=== PATIENT | female | born 1995 | race Caucasian/White ===

== ENCOUNTER 2018-12-11 12:36 | Emergency (ER) | payer BC, SELFPAY ==
[2018-12-11 12:37] VITALS: BP 124/80; PULSE 108; RESP 18; TEMP 36.6; O2SAT 100; BMI 29.2
--- NOTE | 2018-12-11 13:50 | CT_ITS ---
STUDY: CT ABDOMEN AND PELVIS WITH CONTRAST REASON FOR EXAM: Female, 23 years old. Right side abdominal pain RADIATION DOSAGE (If Supplied By Facility): CTDIvol = ( 8.88 ) mGy, DLP = ( 580.06 ) mGycm TECHNIQUE: Transaxial images were obtained from the dome of the diaphragm to the symphysis pubis without oral contrast. 100 IV/Oral Isovue 300 was administered. Sagittal and coronal images were reconstructed. Individualized dose optimization techniques were used for this CT. COMPARISON: None. FINDINGS: The visualized lung bases are unremarkable. The visualized portions of the heart are within normal limits. Normal liver. Normal gallbladder and extrahepatic biliary system. Normal spleen. Normal pancreas. Normal bilateral adrenal glands. Normal right kidney. Normal left kidney. Normal visualized stomach. There are distended loops of small bowel within the right lower quadrant without significant wall thickening. There is abundant stool in the colon especially the cecum extending to the sigmoid. Appendix is normal and well seen on coronal image 51. Normal abdominal aorta. Normal inferior vena cava. Normal retroperitoneum. Bladder is distended measuring 10 x 9 x 9 cm. Normal visualized uterus. The adnexa appears normal bilaterally. Normal abdominal wall. Normal osseous structures. CT/Abdomen/Pelvis WITH Contrast IMPRESSION: Constipation. Distended small bowel loops right lower quadrant. Consider focal ileus. No evidence of appendicitis. No evidence of hydronephrosis. Electronically Signed: Mary Gonzalez MD at 16:09 EDT Tel , Service support ,
[2018-12-11] MEDS: Morphine 4 MG/ML Syringe IV (14:01)
[2018-12-11] MEDS: 0.9% Normal Saline 1,000 ML 150 ML IV (14:01)
[2018-12-11] MEDS: Ondansetron 4 MG/2 ML Vial IV (14:01)
[2018-12-11 14:05] LABS: Absolute Lymphocyte Count 1.66 X10^3/ul (0.83-4.51); Absolute Neutrophil Count 3.7 X10^3/uL (2.0-7.7); Basophil# 0.03 X10^3/uL; Basophil% 0.5 % (0-1); Eosinophil# 0.08 X10^3/uL; Eosinophils% 1.3 % (0-5); Hematocrit 40.9 % (37-47); Hemoglobin 13.9 g/dl (12.0-15.0); Lymphocyte # 1.66 X10^3/ul (4.0); Lymphocyte % 26.7 % (19-41); Mean Corpuscular Hgb 29.4 pg (27.0-32.0); Mean Corpuscular Volume 86.5 fL (81-99); Mean Platelet Vol. 9.4 fl (6.2-12.0); Monocyte# 0.75 X10^3/uL; Monocyte% 12.1 % (0-10); Neutrophil # 3.67 X10^3/uL (2.7-7.7); Neutrophil % 59.1 % (47-70); POSITIVE COUNT NO; POSITIVE DIFFERENTIAL YES; POSITIVE MORPHOLOGY NO; Platelet Count 346 K/mm3 (150-450); RBC Distribution Width CV 12.7 % (11.6-14.6); RBC Distribution Width SD 40.6 fl (35.1-43.9); Red Blood Count 4.73 M/mm3 (4.2-5.4); White Blood Count 6.2 K/mm3 (4.4-11.0)
[2018-12-11 14:06] LABS: Differential Indicated SCAN CRITERIA MET
[2018-12-11 14:14] LABS: Internal QC Validated? YES +Cl - CLEAR BKGD; Pregnancy, Serum, hCG Quali. NEGATIVE Negative
[2018-12-11 14:25] LABS: Anion Gap 10 (5-15); BUN 6 mg/dL (7-18); BUN/Creat Ratio 9.6 RATIO (10-20); Calcium,Total 8.9 mg/dL (8.5-10.1); Chloride 107 mmol/L (98-107); Creatinine, Serum 0.63 mg/dL (0.55-1.02); EST Glomerular Filtration Rate 127 mL/min (>60); Est Glom Filt Rate - Afr Amer 154 mL/min (>60); Estimated Creatinine Clearance 111.72 ml/min; Glucose 74 mg/dL (74-106); Potassium 4.5 mmol/L (3.5-5.1); Sodium Level 141 mmol/L (136-145)
--- NOTE | 2018-12-11 15:33 | ED.VISSUMM ---
- ER Visit Summary Date of Service: 12/11/18 Chief Complaint: Right-sided abdominal pain History of Present Illness: The patient is a 23 F with periumbilical and right lower quadrant pain for the past 4 days. She describes it as intermittent and sharp. Pain is worse after she eats. She is had some mild diarrhea. She has not noted fever or urinary symptoms. Last menstrual cycle was approximately 2 weeks ago. She denies known history of ovarian cysts. Physical Examination: Vital signs unremarkable. Patient's lying in bed no acute distress. She is nontoxic-appearing. Heart is regular rate and rhythm. Lung sounds are clear. Abdomen is soft with mild to moderate tenderness in the periumbilical region. No guarding or rebound. Hypoactive bowel sounds are present. Test Results: CBC and chemistry studies unremarkable. test negative. Urinalysis returns positive for infection with greater than 100 white cells and 2+ bacteria. Emergency Department Course and Treatment: Patient was given morphine, Zofran, and IV fluids. Patient will be treated with a course of Bactrim for her UTI. She will be given prescription for MiraLAX to help with constipation. Treatment Plan: [] Disposition: Discharge Impression: 1. Cystitis 2. Constipation This note was generated with [employer] dictation software. It may contain incorrect words, spelling, and punctuation that were not noted in review of the chart prior to signing ED Disposition - Plan for ED Patient: Disposition: Home or Assisted Living Instructions: ED UTI Cystitis Female, ED Constipation Prescriptions: Polyethylene Glycol 3350 [Miralax] 17 gm PO DAILY #30 packet Smz/Tmp Ds [Bactrim Ds] 1 tablet PO BID #6 tablet Referrals: Napoleon Clark DO [Primary Care Provider] - 1-2 Weeks
[2018-12-11 16:17] LABS: Mucous, Urine 0 SEEN /hpf (<or=2+)
[2018-12-11 16:21] LABS: Color, Urine Yellow (Yellow); Glucose, Dipstick Normal (Normal); Ketone-Dipstick 5 mg/dl (Negative); Leukocyte Esterase-Dipstick 500 /ul (Negative); Nitrite-Dipstick Negative (Negative); Occult Blood-Urine 25 /ul (Negative); Protein-Dipstick 30 mg/dl (Negative); Specific Gravity, Urine 1.005 (1.002-1.030); Urine Bilirubin Dipstick Negative (Negative); Urine Clarity Cloudy (Clear); Urine Urobilinogen Normal (Normal)
[2018-12-11 16:29] LABS: Bacteria 2+ /hpf (None Seen); Red Blood Cells-Urine 5-10 SEEN /hpf (0-5); Squamous Epithelial Cells - UA 25-50 SEEN /hpf (5-10); White Blood Cells >100 SEEN /hpf (0-5)
[2018-12-11 16:30] LABS: Amorphous Sediment 1+ URATE
[2018-12-11 16:53] VITALS: BP 132/80; PULSE 87; RESP 16
[2018-12-11] MEDS: Smz/Tmp Ds Tablet 1 TABLET PO (16:54)
== END 2018-12-11 16:56 | disposition home or self-care (01) ==
PROVIDERS: Emergency Provider Emergency Medicine; Family Provider Preventive Medicine Occupational Medicine; PCP Preventive Medicine Occupational Medicine
DX: N30.90 Cystitis, unspecified without hematuria (principal); K59.00 Constipation, unspecified; R19.7 Diarrhea, unspecified; J45.909 Unspecified asthma, uncomplicated; F90.9 Attention-deficit hyperactivity disorder, unspecified type; Z79.899 Other long term (current) drug therapy
CPT/HCPCS: 74177; 80048; 81001; 84703; 85025; 96361; 96374; 96375; 99284; Q9967; A4216; J2405

== ENCOUNTER 2020-01-24 20:10 | Outpatient (CLI) | payer BC, SELFPAY ==
[2020-01-24 20:31] VITALS: BMI 37.0
[2020-01-24 20:37] VITALS: BP 128/79; PULSE 101
[2020-01-24 20:38] VITALS: TEMP 37.2; O2SAT 98
[2020-01-24 21:16] LABS: Bacteria 0 SEEN /hpf (None Seen); Mucous, Urine 0 SEEN /hpf (<or=2+); Red Blood Cells-Urine 0 SEEN /hpf (0-5)
[2020-01-24 21:22] LABS: Color, Urine Yellow (Yellow); Glucose, Dipstick Normal (Normal); Ketone-Dipstick 5 mg/dl (Negative); Leukocyte Esterase-Dipstick 500 /ul (Negative); Nitrite-Dipstick Negative (Negative); Occult Blood-Urine Negative /ul (Negative); Protein-Dipstick 30 mg/dl (Negative); Specific Gravity, Urine 1.015 (1.002-1.030); Urine Bilirubin Dipstick Negative (Negative); Urine Clarity Sl. Cloudy (Clear); Urine Urobilinogen 1 mg/dl (Normal)
[2020-01-24 21:40] LABS: ROM Internal Control Test YES-OK TO RESULT pt. (Internal QC)
[2020-01-24 21:42] LABS: Amorphous Sediment 1+ URATE; Squamous Epithelial Cells - UA 0-5 SEEN /hpf (5-10); White Blood Cells 25-50 SEEN /hpf (0-5)
[2020-01-24 21:43] LABS: ROM Patient Test Negative (Negative)
--- NOTE | 2020-01-24 21:57 | OB.TRI.NOTE ---
- Problem List (1) Uterine cramping Status: Acute (2) Amniotic fluid leaking Status: Acute (3) 31 weeks gestation of Status: Acute (4) Dysuria during Status: Acute History of Present Illness Date of Service: 01/24/20 Was patient seen by the physician?: Yes Reason For Visit: R/O LABOR Date of Service: 01/24/20 Gestational age: 31.3 History of Present Illness: Patient is a at 31.3 weeks gestation that presents to triage with lower pelvic pressure and back pain that started this evening at 1700. Patient had intercourse around 1600. Some leaking of fluid with no gush. Denies vaginal bleeding. Positive movement. Positive for frequency, urgency and dysuria. Allergies No Known Allergies Allergy (Verified 12/11/18 12:40) Laboratory Studies: Laboratory Tests 01/24/20 01/24/20 Range/Units 21:06 20:57 Urine Color Yellow (Yellow) Urine Clarity Sl. Cloudy (Clear) Urine pH 7.0 (5.0 - 8.0) Ur Specific [place] 1.015 (1.002-1.030) Urine Protein 30 H (Negative) mg/dl Urine Glucose (UA) Normal (Normal) mg/dl Urine Ketones 5 H (Negative) mg/dl Urine Occult Blood Negative (Negative) /ul Urine Nitrite Negative (Negative) Urine Bilirubin Negative (Negative) mg/dL Urine Urobilinogen 1 H (Normal) mg/dl Ur Leukocyte Esterase 500 H (Negative) /ul Urine RBC 0 SEEN (0-5) /hpf Urine WBC 25-50 SEEN (0-5) /hpf Ur Squamous Epith Cells 0-5 SEEN (5-10) /hpf Amorphous Sediment 1+ URATE Urine Bacteria 0 SEEN (None Seen) /hpf Urine Mucus 0 SEEN (<or=2+) /hpf Vag Amniotic Fld Detect Negative (Negative) Review of Systems Constitutional: Denies: Anorexia, Fever Eyes: Denies: Blurred vision Cardiovascular: Denies: Chest Pain, Edema, Heaviness, Light Headedness Respiratory: Denies: Cough, Shortness of Breath Genitourinary: Reports: Dysuria, Frequency, Urgency Musculoskeletal: Reports: Back Pain Neurological: Denies: Headaches Physical Exam Vitals: Vital Signs Temp Pulse BP Pulse Ox 98.9 F 101 H 128/79 H 98 01/24/20 20:38 01/24/20 20:37 01/24/20 20:37 01/24/20 20:38 General: Alert, Oriented x3 Cardiovascular: Regular rate Lungs: Normal air movement Abdomen: Soft, Non Tender, Gravid Neurological: Cranial nerves II-XII grossly intact Estimated gestational size: Appropriate for gestational size Presentation: Cephalic Cervix Dilation (cm): 0 - RN exam Station: -3 Effacement (%): 40 NST - FHR Rate Baby A Baseline: 140 Variability:: Moderate Accelerations:: 15 x 15 Decelerations:: None NST Reactive:: Yes FHR Category:: Category I Uterine Activity:: TOCO- reading irregular but every 2-5 minutes. Contractions palpate mild and relaxed in between Impression/Plan at 31.3 weeks gestation here for pelvic pressure, leaking fluid, dysuria s/p intercourse. ROM plus obtained and sent- negative for amniotic fluid CE- closed/thick/high UA collected and sent- shows signs of dehydration and UTI- Sent for Culture Start Macrobid 100mg PO BID x 7 days- RX sent to pharmacy Patient educated on importance of hydration with water (no tea, juices, sodas) Pelvic rest due to contractions after intercourse Keep scheduled appointment for follow up in office Discharge home- Patient agrees with plan of care
[2020-02-24 12:08] VITALS: BP 131/77; PULSE 121
[2020-02-24 12:10] VITALS: TEMP 36.8
== END 2020-01-24 22:15 | disposition home or self-care (01) ==
LOC: WPOUT 20:17 → OBT 20:17
PROVIDERS: PCP Preventive Medicine Occupational Medicine; Visit Provider Advanced Practice Midwife
DX: O26.893 Other specified pregnancy related conditions, third trimester (principal); M54.9 Dorsalgia, unspecified; R39.15 Urgency of urination; R30.0 Dysuria; R35.0 Frequency of micturition; Z3A.31 31 weeks gestation of pregnancy
CPT/HCPCS: 59025; 59050; 81001; 84112; 87086; 99218; G0378

== ENCOUNTER 2020-02-24 12:00 | Outpatient (CLI) | payer BC, SELFPAY ==
[2020-02-24 12:19] VITALS: BMI 38.2
[2020-02-24 12:23] VITALS: BMI 38.2
[2020-02-24 12:54] LABS: ROM Internal Control Test YES-OK TO RESULT pt. (Internal QC); ROM Patient Test Negative (Negative)
[2020-02-24 13:01] LABS: Color, Urine Yellow (Yellow); Glucose, Dipstick 100 mg/dl (Normal); Ketone-Dipstick 15 mg/dl (Negative); Leukocyte Esterase-Dipstick 100 /ul (Negative); Nitrite-Dipstick Negative (Negative); Occult Blood-Urine 10 /ul (Negative); Protein-Dipstick 30 mg/dl (Negative); Specific Gravity, Urine 1.025 (1.002-1.030); Urine Bilirubin Dipstick Negative (Negative); Urine Clarity Sl. Cloudy (Clear); Urine Urobilinogen 1 mg/dl (Normal)
[2020-02-24 14:16] VITALS: BP 121/80; PULSE 115
--- NOTE | 2020-02-26 08:31 | OB.TRI.NOTE ---
History of Present Illness Date of Service: 02/24/20 Was patient seen by the physician?: No Reason For Visit: RULE OUT SROM Date of Service: 02/24/20 Allergies No Known Allergies Allergy (Verified 12/11/18 12:40) Laboratory Studies: Laboratory Tests 02/24/20 02/24/20 Range/Units 12:55 12:25 Urine Color Yellow (Yellow) Urine Clarity Sl. Cloudy (Clear) Urine pH 5.0 (5.0 - 8.0) Ur Specific [place] 1.025 (1.002-1.030) Urine Protein 30 H (Negative) mg/dl Urine Glucose (UA) 100 H (Normal) mg/dl Urine Ketones 15 H (Negative) mg/dl Urine Occult Blood 10 H (Negative) /ul Urine Nitrite Negative (Negative) Urine Bilirubin Negative (Negative) mg/dL Urine Urobilinogen 1 H (Normal) mg/dl Ur Leukocyte Esterase 100 H (Negative) /ul Vag Amniotic Fld Detect Negative (Negative) Physical Exam Vitals: Vital Signs Pulse BP 115 H 121/80 H 02/24/20 14:16 02/24/20 14:16 NST - FHR Rate Baby A Baseline: 135 Variability:: Moderate Accelerations:: 15 x 15 Decelerations:: None NST Reactive:: Yes FHR Category:: Category I Uterine Activity:: irregular Impression/Plan @ 35.6 weeks, Membranes intact- not in labor ROM+ was negative- dc home
== END 2020-02-24 14:40 | disposition home or self-care (01) ==
LOC: WPOUT 12:13 → OBT 12:14
PROVIDERS: PCP Preventive Medicine Occupational Medicine; Visit Provider Obstetrics & Gynecology
DX: Z34.93 Encounter for supervision of normal pregnancy, unspecified, third trimester (principal); Z3A.35 35 weeks gestation of pregnancy
CPT/HCPCS: 59025; 59050; 81002; 84112; 87086; 87088; 99218; G0378

== ENCOUNTER → 2020-03-25 | Outpatient (CLI) | payer BC, MEDICAID, SELFPAY ==
[2020-02-24 12:23] VITALS: BMI 38.2
== END | disposition home or self-care (01) ==
LOC: MTDU 03-27 11:44
PROVIDERS: PCP Preventive Medicine Occupational Medicine; Referring Provider Advanced Practice Midwife; Visit Provider Advanced Practice Midwife
DX: Z11.59 Encounter for screening for other viral diseases (principal)
CPT/HCPCS: 87635; C9803; U0003

== ENCOUNTER 2020-03-28 23:00 | Inpatient (IN) | payer BC, MEDICAID, SELFPAY ==
[2020-03-28 19:47] VITALS: BP 137/82
[2020-03-28 19:48] VITALS: PULSE 101; TEMP 36.7; O2SAT 97
[2020-03-28 20:01] VITALS: BMI 40.1
[2020-03-28 20:35] LABS: ROM Internal Control Test YES-OK TO RESULT pt. (Internal QC); ROM Patient Test Negative (Negative)
[2020-03-28 21:10] VITALS: BP 137/82; PULSE 102; RESP 18; TEMP 36.7; O2SAT 97
[2020-03-28 23:15] VITALS: BP 132/84; PULSE 102
[2020-03-28 23:16] VITALS: PULSE 103; TEMP 36.7; O2SAT 96
[2020-03-28 23:55] VITALS: BP 124/74; PULSE 100; TEMP 36.7; O2SAT 92
[2020-03-28 23:59] LABS: Absolute Lymphocyte Count 2.24 X10^3/uL (0.83-4.51); Absolute Neutrophil Count 11.3 X10^3/uL (2.0-7.7); Basophil# 0.08 X10^3/uL; Basophil% 0.5 % (0-1); Eosinophil# 0.05 X10^3/uL; Eosinophils% 0.3 % (0-5); Hematocrit 35.4 % (37-47); Lymphocyte # 2.24 X10^3/ul (4.0); Mean Corp Hgb Conc 33.9 g/dL (32-36); Mean Corpuscular Hgb 29.8 pg (27.0-32.0); Mean Corpuscular Volume 87.8 fL (81-99); Mean Platelet Vol. 10.6 fl (6.2-12.0); Monocyte# 1.05 X10^3/uL; NRBC Flagged by Analyzer 0 % (0-5); Neutrophil # 11.29 X10^3/uL (2.7-7.7); Neutrophil % 75.4 % (47-70); Platelet Count 242 K/mm3 (150-450); RBC Distribution Width SD 41.7 fl (35.1-43.9); Red Blood Count 4.03 M/mm3 (4.2-5.4)
[2020-03-29] VITALS (62 sets, daily range): BP systolic 100–139; BP diastolic 50–93; PULSE 77–146; RESP 12–18; TEMP 36.4–37.8; O2SAT 93–100
[2020-03-29] MEDS: 0.9% Saline Lock 10 ML Syringe IV ×2 (01:00→17:57)
[2020-03-29] MEDS: fentaNYL 100 MCG/2 ML Ampul IV (01:00)
[2020-03-29] MEDS: Lactated Ringers 1,000 ML 50 ML IV (01:00)
[2020-03-29] MEDS: Lactated Ringers 500 ML 999 ML IV ×2 (01:41→02:47)
[2020-03-29] MEDS: fentaNYL-bupivacaine (epidural) 100 ML BAG EPIDURAL ×2 (02:40→11:24)
[2020-03-29] MEDS: Ondansetron 4 MG/2 ML Vial IV (02:52)
--- NOTE | 2020-03-29 04:26 | HP.PCM_ITS ---
- Problem List (1) Primiparous Status: Acute (2) 40 weeks gestation of Status: Acute (3) Excessive growth Status: Acute History Date of Admission: 03/29/20 Final HELGA: 03/24/20 Gestational age: 40 Weeks and 5 Days History of this : This is a 24 year-old, G 1, P 0, at 40 weeks gestational age who presents with SROM and ctx's. No VB. Good FM. Medical History: Medical History (Last Updated 03/29/20 @ 04:[address] Kathy Perea, DO) Anxiety F41.9 Asthma J45.909 Migraines G43.909 PCOS (polycystic ovarian syndrome) E28.2 Allergies No Known Allergies Allergy (Verified 03/28/20 20:02) Home Medications: Home Medications Buspirone HCl 10 mg DAILY 12/11/18 Loratadine [Claritin] 10 mg PO DAILY 01/24/20 Montelukast [Singulair] 10 mg PO DAILY 01/24/20 Vits [Prenatabs FA] 1 tab PO DAILY 01/24/20 Smoking Status: Former smoker Number of Fetus(es): 1 NST - FHR Rate Baby A FHR Category:: Category I Uterine Activity:: Ctx's spacing apart History Past Pregnancies: Past Pregnancies Delivery Date Name GA/ Weeks Outcome Route Wt Infant Sex Labor Length Anesthesia Delivery Location Provider FOB Labs: See [facility] record Expected Infant Delivery Method: Spontaneous Vaginal Review of Systems Gynecological: Reports: - - +Ctx and LOF Physical Exam Vitals: Vital Signs Temp Pulse Resp BP Pulse Ox 97.7 F L 95 18 109/71 97 03/29/20 03:30 03/29/20 04:24 03/28/20 21:10 03/29/20 04:24 03/29/20 03:44 General: Alert, No apparent distress Abdomen: Soft, Gravid Extremities:: No edema Neurological: Neuro grossly intact [employer] COMPLAINT CLERK: Normal external genitalia Estimated gestational size: Large for gestational age Presentation: Cephalic Cervix Dilation (cm): 4 Station: -3 Effacement (%): 50 Assessment/Plan All Active Problems Uterine cramping (Acute) Amniotic fluid leaking (Acute) 31 weeks gestation of (Acute) Dysuria during (Acute) Primiparous (Acute) 40 weeks gestation of (Acute) Excessive growth (Acute) This is a 24 year-old, G 1, P 0, at 40 weeks gestational age who presents with SROM and ctx's. - Admit for routine intrapartum care - GBS negative - Epidural for pain control - EFW anticipated to be < 5000 g and pelvis adequate. Patient declined primary section and desires vaginal delivery. Diabetes screening WNL
[2020-03-29] MEDS: Oxytocin 30 units/NS 500 ml 30 UNITS/500 ML IV.SOLN IV (04:30)
--- NOTE | 2020-03-29 04:45 | PCM.PN.BLA ---
Progress Note Called to assess presentation. Vertex presentation noted on digital exam. Cvx 4/50/-3 and fetus not engaged in pelvis. Patient's ctx's have now spaced apart. Given this, as well as EFW of ~10 lbs, strongly recommended a primary section. Discussed risk of shoulder dystocia leading to brain injury, nerve injury, or with baby. She declines a section and understands she is proceeding against my medical advice. She says she has discussed a section with other family members, and she also does not want to recover from a surgery. All of her questions were answered about a section. Will recheck after starting pitocin and reassess. STROKE Vital Signs/Narrative: Vital Signs Temp Pulse BP Pulse Ox 03/29/20 04:24 97.7 F L 95 109/71 03/29/20 04:00 95 111/68 03/29/20 03:44 82 97 03/29/20 03:39 89 97 03/29/20 03:34 92 98 03/29/20 03:30 97.7 F L 78 110/66 03/29/20 03:29 85 98 03/29/20 03:24 89 97 03/29/20 03:19 88 97 03/29/20 03:14 103 H 97 03/29/20 03:09 92 96 03/29/20 03:04 97 96 03/29/20 03:00 98.7 F 100 107/57 L 03/29/20 02:59 96 03/29/20 02:54 114 H 114/58 L 96 03/29/20 02:50 123 H 117/58 L 03/29/20 02:49 98 03/29/20 02:46 110 H 100/52 L 03/29/20 02:45 111 H 107/57 L 03/29/20 02:44 104 H 96 03/29/20 02:40 101 H 107/50 L 93 03/29/20 02:35 93 120/73 03/29/20 02:34 90 97 03/29/20 02:31 100 131/79 H 03/29/20 02:29 99 98 03/29/20 02:24 100 126/70 H 97 03/29/20 02:20 96 121/66 H 03/29/20 02:19 97 03/29/20 02:15 111 H 139/93 H 03/29/20 02:14 99 03/29/20 02:10 102 H 135/85 H 03/29/20 02:09 99.2 F H 100 03/29/20 00:49 98.5 F 92 118/68 97
[2020-03-29] MEDS: Lactated Ringers 1,000 ML 200 ML IV ×2 (06:48→11:21)
--- NOTE | 2020-03-29 10:20 | PCM.PN.BLA ---
Progress Note Delayed entry. Cervix was reexamined after 4 hours. Cervix was found to be 4.5/60/-3. Pelvis felt to be narrow. IUPC and FSE placed. Continue to titrate Pitocin. Again discussed strongly recommend a primary section given suspected CPD and macrosomia. Patient declines a section and understands this is against my medical advice. STROKE Vital Signs/Narrative: Vital Signs Temp Pulse BP Pulse Ox 03/29/20 10:06 100.0 F H 106 H 133/71 H 96 03/29/20 08:56 99.4 F H 86 117/71 96 03/29/20 08:02 83 118/58 L 03/29/20 08:00 98.1 F 03/29/20 06:55 99.1 F 77 114/70
--- NOTE | 2020-03-29 12:06 | PCM.PN.BLA ---
Progress Note At bedside to assess pt per her request. Cvx unchanged. She is having back pain and occasionally coupling ctx's. Possible OP position but unable to assess given station. Patient has now been ruptured for about 14 hours. Pit gtt running for augmentation as her ctx's had spaced apart. Baby is still not engaged in the pelvis. Patient desires section given suspected macrosomia and CPD. Reviewed r/b/a to a section and patient gave consent. Will proceed with C/S. STROKE Vital Signs/Narrative: Vital Signs Temp Pulse BP Pulse Ox 03/29/20 11:29 98.6 F 03/29/20 11:05 94 97 03/29/20 11:04 99 117/66 03/29/20 10:06 100.0 F H 106 H 133/71 H 96 03/29/20 08:56 99.4 F H 86 117/71 96
[2020-03-29] MEDS: Sodium Citrate/Citric Acid 30 ML UDC PO (12:50)
[2020-03-29] MEDS: Cefazolin 2 GM in 0.9% Normal Saline 100 ML IV (12:53)
[2020-03-29] MEDS: Methylergonovine 0.2 MG/ML Ampul IM (14:14)
[2020-03-29] MEDS: Oxytocin 30 units/NS 500 ml 30 UNITS/500 ML IV.SOLN 167 UNITS IV (14:35)
[2020-03-29] MEDS: Lactated Ringers 1,000 ML 100 ML IV (14:45)
--- NOTE | 2020-03-29 15:00 | OP.PCM_ITS ---
Problem List (1) Primiparous Status: Acute (2) 40 weeks gestation of Status: Acute (3) Excessive growth Status: Acute (4) CPD (cephalo-pelvic disproportion) Status: Acute Report of Operation Date of Procedure: 03/29/20 Pre-Operative Diagnosis: 40 week gestation, primiparous patient, CPD, suspected macrosomia Post-Operative Diagnosis: 40 week gestation, primiparous patient, CPD Surgery/Procedure Performed:: PLTCS via pfannenstiel incision Description of Surgical Findings:: in cephalic presentation. Normal-appearing uterus, bilateral tubes, bilateral ovaries. Normal-appearing and intact placenta with three-vessel cord. Type of Anesthesia:: Epidural Special Medications: None Specimen's removed: Placenta Drains: Carroll Estimated Blood Loss (mL): 1000 Fluids Replaced: 1200 Description of Procedure: Patient was taken back to the operating room where epidural anesthesia was found to be adequate. She was prepped and draped in dorsal position with a leftward tilt. A Pfannenstiel skin incision was made with a scalpel and this was carried down to the underlying layer fascia. The fascia was incised in the midline. The fascia was extended laterally using Brown scissors. The fascia was dissected off the rectus muscles with a combination of sharp and blunt dissection. The rectus muscles were entered in the midline. The peritoneum was entered sharply with good visualization of the bladder. Incision was extended bluntly. A low transverse incision was made on the uterus with a scalpel. A viable female was delivered through the hysterotomy without any force or delay. delivered atraumatically and cord was clamped and cut after 60 sec delay. Infant was handed off to the nursery staff. Uterus was exteriorized. Placenta was removed with manual extraction. Uterus was cleared of all clot and debris. The uterus was closed with Vicryl in a running locked fashion. Several additional [id number] sutures were placed for hemostasis. Uterus was then placed back in the abdomen. Cody was placed over the hysterotomy. Hemostasis was noted. The peritoneum was closed with Vicryl in a running fashion. The rectus muscles were made hemostatic with Bovie cautery and a single aogpvo-oe-capyc suture. The fascia was closed with Vicryl in a running fashion. Subcutaneous space was irrigated and made hemostatic with Bovie cautery. Subcutaneous space was reapproximated with Vicryl. The skin was closed with Monocryl in subcuticular fashion. Steri-Strips and a dressing were placed. Instrument, sponge, needle counts were correct. Patient was taken recovery in stable condition. Grafts/Implants Used: None - Complications None - Admit VTE Documentation VTE Present on Admission: No VTE Mechan Device Prophylaxis: SCD's Delivery Classification: DIANA Indications for : Malpresentation - OP position, Suspected cephalopelvic disproportion - Narrow pelvis, - - Suspected macrosomia, baby was expected to be over 10 lbs Drain: Carroll to straight drain Cord Entanglement: None Antibiotic Given: Ancef 2 grams IV x1, Zithromax 500 mg/5 mL X1 Pt instructed on risks of surgery: Bleeding, Infection, Need for Future C- Sections, Injury to surrounding structure(s) including bowel and bladder Complications: None - Admit VTE Documentation VTE Present on Admission: No VTE Mechan Device Prophylaxis: SCD's VTE Pharm Prophylaxis ordered?: Yes
[2020-03-29] MEDS: miSOPROStol 200 MCG Tablet 800 MCG RECTAL (15:12)
--- NOTE | 2020-03-29 16:20 | NURSING ---
epidural catheter removed at this time without difficulty. Blue tip intact and shown to patient. Bandaid placed over epidural catheter insertion site.
[2020-03-29] MEDS: proCHLORPERazine 10 MG/2 ML Vial IV (16:27)
[2020-03-29] MEDS: Acetaminophen 500 MG Tablet 1000 MG PO (17:54)
[2020-03-29] MEDS: Ketorolac 30 MG/ML Syringe IV (17:54)
[2020-03-29] MEDS: DiphenhydrAMINE 25 MG Capsule PO (23:34)
[2020-03-30] VITALS (12 sets, daily range): BP systolic 94–125; BP diastolic 55–67; PULSE 89–119; RESP 16–18; TEMP 36.7–37.3; O2SAT 95–100
[2020-03-30] MEDS: Acetaminophen 500 MG Tablet 1000 MG PO ×4 (00:06→18:51)
[2020-03-30] MEDS: Ketorolac 30 MG/ML Syringe IV ×3 (00:07→12:03)
[2020-03-30] MEDS: Lactated Ringers 1,000 ML 100 ML IV (00:10)
[2020-03-30] MEDS: Enoxaparin 40 MG/0.4 ML Syringe SC ×2 (02:49→22:42)
[2020-03-30] MEDS: 0.9% Saline Lock 10 ML Syringe IV ×3 (06:11→17:44)
[2020-03-30 08:55] LABS: Hematocrit 22.2 % (37-47); Hemoglobin 7.3 g/dL (12.0-15.0); Mean Corp Hgb Conc 32.9 g/dL (32-36); Mean Corpuscular Hgb 29.7 pg (27.0-32.0); Mean Corpuscular Volume 90.2 fL (81-99); Mean Platelet Vol. 11.3 fl (6.2-12.0); Platelet Count 190 K/mm3 (150-450); RBC Distribution Width CV 13.4 % (11.6-14.6); RBC Distribution Width SD 44.1 fl (35.1-43.9); Red Blood Count 2.46 M/mm3 (4.2-5.4); White Blood Count 13.8 K/mm3 (4.4-11.0)
[2020-03-30] MEDS: Senna/Docusate Sodium 1 Tablet PO (10:17)
--- NOTE | 2020-03-30 10:46 | PN.OBGYN_ITS ---
Patient Problems: Active and Suspected Problems (Last Updated 03/29/20 @ 04:[address] Kathy Perea, DO) Primiparous (Acute) 40 weeks gestation of (Acute) Excessive growth (Acute) CPD (cephalo-pelvic disproportion) (Acute) Subjective: She is doing well this morning. Ambulating and voiding without difficulty. Tolerating regular diet without nausea or vomiting. She denies lightheadedness, dizziness, chest pain, shortness of breath, leg pain. Lochia normal. She is breast-feeding without complaints. - Physical Exam Vitals/I&O's: Vital Signs Temp Pulse Resp BP Pulse Ox 99.2 F H 102 H 16 113/57 L 99 03/30/20 08:44 03/30/20 09:51 03/30/20 09:51 03/30/20 08:44 03/30/20 09:51 Oxygen Delivery Method Room Air Weight: 219 lb 5.759 oz Body Mass Index (BMI) 40.1 Intake and Output for Last 24 Hours 03/28/20 03/29/20 03/30/20 23:59 23:59 23:59 Intake Total 5230.10 / 5230.10 1540 / 1540 Output Total 2300 / 2300 900 / 900 Balance 2930.10 / 2930.10 640 / 640 General: Alert, No apparent distress HEENT: Atraumatic Abdomen: Soft, Non Tender, - - Dressing c/d/i, no rebounding, no gaurding, no rigidity Extremities: No edema, No Calf Tenderness Skin: No rashes Neurological: Neuro grossly intact Psych/Mental Status: Normal Affect, Appropriate Laboratory Results 03/30/20 06:25: WBC 13.8 H, RBC 2.46 L, Hgb 7.3 L, Hct 22.2 L, MCV 90.2, MCH 29.7, MCHC 32.9, RDW Std Deviation 44.1 H, RDW Coeff of Jesse 13.4, Plt Count 190, MPV 11.3 Current Medications Acetaminophen (Tylenol) 1,000 mg PO Q6 FARAZ Last Admin: 03/30/20 06:09 Dose: 1,000 mg Documented by: Bisacodyl (Dulcolax) 10 mg RECTAL UD PRN PRN Reason: If no BM Diphenhydramine HCl (Benadryl) 25 mg PO Q6H PRN PRN PRN Reason: ITCHING Enoxaparin Sodium (Lovenox) 40 mg SC 2200 [facility] Hydrocortisone (Hytone) 1 applic TOPICAL TID PRN PRN; Protocol PRN Reason: Discomfort Naloxone HCl 4 mg/ Dextrose 504 mls @ 0 mls/hr IV .Q0M PRN; Protocol PRN Reason: Respiratory depression Ibuprofen (Motrin) 600 mg PO Q6 [facility] Ketorolac Tromethamine (Toradol (Bkc)) 30 mg IV Q6 [facility] Stop: 03/30/20 12:01 Last Admin: 03/30/20 06:09 Dose: 30 mg Documented by: Methylergonovine Maleate (Methergine) 0.2 mg IM X1 PRN PRN Reason: Uterine Atony Last Admin: 03/29/20 14:14 Dose: 0.2 mg Documented by: Naloxone HCl (Narcan) 0.02 mg IV Q1M PRN PRN Reason: RR <10 and pt unresponsive Ondansetron HCl (Zofran) 4 mg IV Q4H PRN PRN PRN Reason: Nausea Oxycodone HCl (Oxyir) 5 - 10 mg PO Q4H PRN PRN PRN Reason: Pain Score 4-10/10 Prochlorperazine Edisylate (Compazine Iv) 10 mg IV Q6H PRN PRN PRN Reason: NAUSEA Last Admin: 03/29/20 16:27 Dose: 10 mg Documented by: Senna/Docusate Sodium (Senokot-S, Gi-Colace) 0 tablet PO DAILY [facility] Last Admin: 03/30/20 10:17 Dose: 2 tablet Documented by: Simethicone (Mylicon) 80 mg PO PCHS PRN PRN Reason: Indigestion/stomach pain Sodium Chloride () 5 - 15 ml IV UD PRN PRN Reason: SALINE FLUSH Last Admin: 03/30/20 06:11 Dose: 10 ml Documented by: Medical Necessity - Tobacco Use Smoking Status: Former smoker Assessment/Plan All Active Problems (Last Updated 03/29/20 @ 04:[address] Kathy Perea, DO) Uterine cramping (Acute) Amniotic fluid leaking (Acute) 31 weeks gestation of (Acute) Dysuria during (Acute) Primiparous (Acute) 40 weeks gestation of (Acute) Excessive growth (Acute) CPD (cephalo-pelvic disproportion) (Acute) Patient is postoperative day 1 from a primary for suspected macrosomia and CPD. She is doing well postoperatively. Her hemoglobin is 7.3 this morning from 12 preoperatively. She has no symptoms of anemia. Breast-feeding is going well. Discussed possible need for blood transfusion and reviewed the risks associated with a blood transfusion. Will repeat CBC this afternoon and in the morning. She may need IV iron. Abdominal exam is benign. Occasional tachycardia but otherwise HDS. Dispo: Routine post-op care.
[2020-03-30 16:39] LABS: Hematocrit 22.4 % (37-47); Hemoglobin 7.4 g/dL (12.0-15.0); Mean Corpuscular Hgb 29.7 pg (27.0-32.0); Mean Platelet Vol. 10.9 fl (6.2-12.0); Platelet Count 209 K/mm3 (150-450); RBC Distribution Width CV 13.2 % (11.6-14.6); RBC Distribution Width SD 43.7 fl (35.1-43.9); Red Blood Count 2.49 M/mm3 (4.2-5.4); White Blood Count 15.7 K/mm3 (4.4-11.0)
[2020-03-30] MEDS: Ibuprofen 600 MG Tablet PO ×2 (18:52→23:51)
[2020-03-31] MEDS: Acetaminophen 500 MG Tablet 1000 MG PO ×3 (00:09→12:56)
[2020-03-31 01:50] VITALS: BP 99/57; PULSE 92; RESP 18; TEMP 36.7
[2020-03-31 04:55] LABS: Hematocrit 22.1 % (37-47); Hemoglobin 7.2 g/dL (12.0-15.0); Mean Corp Hgb Conc 32.6 g/dL (32-36); Mean Corpuscular Hgb 29.4 pg (27.0-32.0); Mean Corpuscular Volume 90.2 fL (81-99); Mean Platelet Vol. 10.4 fl (6.2-12.0); Platelet Count 234 K/mm3 (150-450); RBC Distribution Width CV 13.3 % (11.6-14.6); RBC Distribution Width SD 43.8 fl (35.1-43.9); Red Blood Count 2.45 M/mm3 (4.2-5.4); White Blood Count 14.4 K/mm3 (4.4-11.0)
[2020-03-31] MEDS: Ibuprofen 600 MG Tablet PO ×2 (06:16→11:35)
[2020-03-31 08:00] VITALS: BP 126/85; PULSE 108; RESP 18; TEMP 37.1; O2SAT 98
--- NOTE | 2020-03-31 10:06 | PN.OBGYN_ITS ---
Patient Problems: Active and Suspected Problems (Last Updated 03/29/20 @ 04:[address] Kathy Perea, DO) Primiparous (Acute) 40 weeks gestation of (Acute) Excessive growth (Acute) CPD (cephalo-pelvic disproportion) (Acute) Subjective: Patient seen at bedside. Stated feeling good. Denies any dizziness, headaches, vision changes or shortness of breath. Lochia decreasing. Ambulating in room and voiding without difficulty. Passing flatus. Requesting to go home today. and working with . Objective: Dressing is Dry and intact Fundus firm below 2 - Physical Exam Vitals/I&O's: Vital Signs Temp Pulse Resp BP Pulse Ox 98.8 F 108 H 18 126/85 H 98 03/31/20 08:00 03/31/20 08:00 03/31/20 08:00 03/31/20 08:00 03/31/20 08:00 Oxygen Delivery Method Room Air Weight: 219 lb 5.759 oz Body Mass Index (BMI) 40.1 Intake and Output for Last 24 Hours 03/29/20 03/30/20 03/31/20 23:59 23:59 23:59 Intake Total 5230.10 / 5230.10 1650 / 1650 Output Total 2300 / 2300 900 / 900 Balance 2930.10 / 2930.10 750 / 750 General: Alert, Oriented x3, Cooperative, No apparent distress Oral: Moist Mucosa Lungs: Normal air movement Cardiovascular: Regular rate Abdomen: Soft, Non Tender, Passing Flatus Extremities: No Calf Tenderness, - - Bilateral edema 2+ to feet Neurological: Cranial nerves II-XII grossly intact Psych/Mental Status: Normal Affect Laboratory Results 03/30/20 16:25: WBC 15.7 H, RBC 2.49 L, Hgb 7.4 L, Hct 22.4 L, MCV 90.0, MCH 29.7, MCHC 33.0, RDW Std Deviation 43.7, RDW Coeff of Jesse 13.2, Plt Count 209, MPV 10.9 03/31/20 04:45: WBC 14.4 H, RBC 2.45 L, Hgb 7.2 L, Hct 22.1 L, MCV 90.2, MCH 29.4, MCHC 32.6, RDW Std Deviation 43.8, RDW Coeff of Jesse 13.3, Plt Count 234, MPV 10.4 Current Medications Acetaminophen (Tylenol) 1,000 mg PO Q6 [facility] Last Admin: 03/31/20 06:16 Dose: 1,000 mg Documented by: Bisacodyl (Dulcolax) 10 mg RECTAL UD PRN PRN Reason: If no BM Diphenhydramine HCl (Benadryl) 25 mg PO Q6H PRN PRN PRN Reason: ITCHING Enoxaparin Sodium (Lovenox) 40 mg SC 2200 [facility] Last Admin: 03/30/20 22:42 Dose: 40 mg Documented by: Ferrous Sulfate (Ferrous Sulfate) 325 mg PO 1200,1700 [facility] Hydrocortisone (Hytone) 1 applic TOPICAL TID PRN PRN; Protocol PRN Reason: Discomfort Naloxone HCl 4 mg/ Dextrose 504 mls @ 0 mls/hr IV .Q0M PRN; Protocol PRN Reason: Respiratory depression Ibuprofen (Motrin) 600 mg PO Q6 [facility] Last Admin: 03/31/20 06:16 Dose: 600 mg Documented by: Methylergonovine Maleate (Methergine) 0.2 mg IM X1 PRN PRN Reason: Uterine Atony Last Admin: 03/29/20 14:14 Dose: 0.2 mg Documented by: Naloxone HCl (Narcan) 0.02 mg IV Q1M PRN PRN Reason: RR <10 and pt unresponsive Ondansetron HCl (Zofran) 4 mg IV Q4H PRN PRN PRN Reason: Nausea Oxycodone HCl (Oxyir) 5 - 10 mg PO Q4H PRN PRN PRN Reason: Pain Score 4-10/10 Prochlorperazine Edisylate (Compazine Iv) 10 mg IV Q6H PRN PRN PRN Reason: NAUSEA Last Admin: 03/29/20 16:27 Dose: 10 mg Documented by: Senna/Docusate Sodium (Senokot-S, Gi-Colace) 0 tablet PO DAILY [facility] Last Admin: 03/30/20 10:17 Dose: 2 tablet Documented by: Simethicone (Mylicon) 80 mg PO PCHS PRN PRN Reason: Indigestion/stomach pain Last Admin: 03/30/20 16:46 Dose: 80 mg Documented by: Sodium Chloride () 5 - 15 ml IV UD PRN PRN Reason: SALINE FLUSH Last Admin: 03/30/20 17:44 Dose: 10 ml Documented by: Medical Necessity - Tobacco Use Smoking Status: Former smoker Assessment/Plan All Active Problems (Last Updated 03/29/20 @ 04:[address] Kathy Perea, DO) Uterine cramping (Acute) Amniotic fluid leaking (Acute) 31 weeks gestation of (Acute) Dysuria during (Acute) Primiparous (Acute) 40 weeks gestation of (Acute) Excessive growth (Acute) CPD (cephalo-pelvic disproportion) (Acute) A/P POD #2 Pain management Routine care Hgb. down today 7.2 from 7.4 yesterday- Asymptomatic Start PO FE BID and continue at home Discharge home to follow up in 1 week for incision check
--- NOTE | 2020-03-31 10:15 | DCINST_ITS ---
Discharge Diet: No Restrictions Discharge Activity: May Not Drive - 2 weeks Additional Instructions: If you experience any of the following, contact your healthcare provider. * Bleeding that soaks a pad every hour for 2 hours * Fever 100.4 or higher * Unrelieved incision or abdominal pain * Swelling, redness, discharge or bleeding from your incision or episiotomy site * Your incision begins to separate * Problems urinating (including inability to urinate or burning while urinating). * Visual changes * Severe headache * Flu-like symptoms * Pain or redness in one of both of your breasts * Pain, warmth, tenderness or swelling in your legs, especially the calf area * Frequent nausea and vomiting * Symptoms of depression or anxiety If you experience any of the following, call 911 or go to the nearest Emergency Room. * Chest pain * Problems breathing * Seizure activity * Partial or complete paralysis of a body part, slurred speech, weakness or drooping of the face, or a sudden inability to walk or hold your balance Allergies/Adverse Reactions: Allergies No Known Allergies Allergy (Verified 03/28/20 20:02) Medications to take at Discharge Buspirone HCl 10 mg DAILY 12/11/18 Loratadine [Claritin] 10 mg PO DAILY 01/24/20 Montelukast [Singulair] 10 mg PO DAILY 01/24/20 Vits [Prenatabs FA] 1 tab PO DAILY 01/24/20 Follow-Up: Call to make an appointment with your doctor for an incision check in 1-2 weeks. You will also need a 6 week post- follow up appointment. Test results from this visit will be discussed in further detail at your follow- up appointment, if applicable. Primary Care Physician: Napoleon Clark DO [Primary Care Provider] -
--- NOTE | 2020-03-31 10:15 | PCM.DCCSEC ---
Discharge Diet: No Restrictions Discharge Activity: May Not Drive - 2 weeks Additional Instructions: If you experience any of the following, contact your healthcare provider. Bleeding that soaks a pad every hour for 2 hours Fever 100.4 or higher Unrelieved incision or abdominal pain Swelling, redness, discharge or bleeding from your incision or episiotomy site Your incision begins to separate Problems urinating (including inability to urinate or burning while urinating). Visual changes Severe headache Flu-like symptoms Pain or redness in one of both of your breasts Pain, warmth, tenderness or swelling in your legs, especially the calf area Frequent nausea and vomiting Symptoms of depression or anxiety If you experience any of the following, call 911 or go to the nearest Emergency Room. Chest pain Problems breathing Seizure activity Partial or complete paralysis of a body part, slurred speech, weakness or drooping of the face, or a sudden inability to walk or hold your balance Allergies/Adverse Reactions: Allergies No Known Allergies Allergy (Verified 03/28/20 20:02) Medications to take at Discharge Buspirone HCl 10 mg DAILY 12/11/18 Loratadine [Claritin] 10 mg PO DAILY 01/24/20 Montelukast [Singulair] 10 mg PO DAILY 01/24/20 Vits [Prenatabs FA] 1 tab PO DAILY 01/24/20 Follow-Up: Call to make an appointment with your doctor for an incision check in 1-2 weeks. You will also need a 6 week post- follow up appointment. Test results from this visit will be discussed in further detail at your follow-up appointment, if applicable. Primary Care Physician: Napoleon Clark DO [Primary Care Provider] -
--- NOTE | 2020-03-31 10:16 | PCM.DC.SUM ---
Discharge Date and Diagnosis - Problem List Patient Problems: Active and Suspected Problems (Last Updated 03/29/20 @ 04:[address] Kathy ePrea DO) Primiparous (Acute) 40 weeks gestation of (Acute) Excessive growth (Acute) CPD (cephalo-pelvic disproportion) (Acute) Date of Admission: 03/29/20 Date of Discharge: 03/31/20 - Primary Discharge Diagnosis Acute Problems: Active Problems (Last Updated 03/29/20 @ 04:[address] Kathy Perea DO) Primiparous (Acute) 40 weeks gestation of (Acute) Excessive growth (Acute) CPD (cephalo-pelvic disproportion) (Acute) Hospital Course and Treatment Summary of Care Provided: The patient is a 24 year old F [ that was a primary C/S for CPD. Patient received iron infusion due to hemiglobin of 7.4. Oral iron ordered and patient to continue taking at home.] Patient Problems: Active and Suspected Problems (Last Updated 03/29/20 @ 04:[address] Kathy Perea DO) Primiparous (Acute) 40 weeks gestation of (Acute) Excessive growth (Acute) CPD (cephalo-pelvic disproportion) (Acute) - Physical Exam Vitals/I&O's: Vital Signs Temp Pulse Resp BP Pulse Ox 98.8 F 108 H 18 126/85 H 98 03/31/20 08:00 03/31/20 08:00 03/31/20 08:00 03/31/20 08:00 03/31/20 08:00 Oxygen Delivery Method Room Air Weight: 219 lb 5.759 oz Body Mass Index (BMI) 40.1 Intake and Output for Last 24 Hours 03/29/20 03/30/20 03/31/20 23:59 23:59 23:59 Intake Total 5230.10 / 5230.10 1650 / 1650 Output Total 2300 / 2300 900 / 900 Balance 2930.10 / 2930.10 750 / 750 Laboratory Results 03/30/20 16:25: WBC 15.7 H, RBC 2.49 L, Hgb 7.4 L, Hct 22.4 L, MCV 90.0, MCH 29.7, MCHC 33.0, RDW Std Deviation 43.7, RDW Coeff of Jesse 13.2, Plt Count 209, MPV 10.9 03/31/20 04:45: WBC 14.4 H, RBC 2.45 L, Hgb 7.2 L, Hct 22.1 L, MCV 90.2, MCH 29.4, MCHC 32.6, RDW Std Deviation 43.8, RDW Coeff of Jesse 13.3, Plt Count 234, MPV 10.4 Current Medications Acetaminophen (Tylenol) 1,000 mg PO Q6 [facility] Last Admin: 03/31/20 06:16 Dose: 1,000 mg Documented by: Bisacodyl (Dulcolax) 10 mg RECTAL UD PRN PRN Reason: If no BM Diphenhydramine HCl (Benadryl) 25 mg PO Q6H PRN PRN PRN Reason: ITCHING Enoxaparin Sodium (Lovenox) 40 mg SC 2200 [facility] Last Admin: 03/30/20 22:42 Dose: 40 mg Documented by: Ferrous Sulfate (Ferrous Sulfate) 325 mg PO 1200,1700 [facility] Hydrocortisone (Hytone) 1 applic TOPICAL TID PRN PRN; Protocol PRN Reason: Discomfort Naloxone HCl 4 mg/ Dextrose 504 mls @ 0 mls/hr IV .Q0M PRN; Protocol PRN Reason: Respiratory depression Ibuprofen (Motrin) 600 mg PO Q6 [facility] Last Admin: 03/31/20 06:16 Dose: 600 mg Documented by: Methylergonovine Maleate (Methergine) 0.2 mg IM X1 PRN PRN Reason: Uterine Atony Last Admin: 03/29/20 14:14 Dose: 0.2 mg Documented by: Naloxone HCl (Narcan) 0.02 mg IV Q1M PRN PRN Reason: RR <10 and pt unresponsive Ondansetron HCl (Zofran) 4 mg IV Q4H PRN PRN PRN Reason: Nausea Oxycodone HCl (Oxyir) 5 - 10 mg PO Q4H PRN PRN PRN Reason: Pain Score 4-10/10 Prochlorperazine Edisylate (Compazine Iv) 10 mg IV Q6H PRN PRN PRN Reason: NAUSEA Last Admin: 03/29/20 16:27 Dose: 10 mg Documented by: Senna/Docusate Sodium (Senokot-S, Gi-Colace) 0 tablet PO DAILY [facility] Last Admin: 03/30/20 10:17 Dose: 2 tablet Documented by: Simethicone (Mylicon) 80 mg PO PCHS PRN PRN Reason: Indigestion/stomach pain Last Admin: 03/30/20 16:46 Dose: 80 mg Documented by: Sodium Chloride () 5 - 15 ml IV UD PRN PRN Reason: SALINE FLUSH Last Admin: 03/30/20 17:44 Dose: 10 ml Documented by: Discharge Diet: No Restrictions Discharge Activity: May Not Drive - 2 weeks Home Medications: Medications to take at Discharge Buspirone HCl 10 mg DAILY 12/11/18 Loratadine [Claritin] 10 mg PO DAILY 01/24/20 Montelukast [Singulair] 10 mg PO DAILY 01/24/20 Vits [Prenatabs FA] 1 tab PO DAILY 01/24/20 Primary Care Physician: Napoleon Clark DO [Primary Care Provider] - Medical Necessity - Tobacco Use Smoking Status: Former smoker Meaningful Use Info Meaningful Use Diagnoses (Choose all that apply): None applicable
[2020-03-31] MEDS: Senna/Docusate Sodium 1 Tablet PO (10:48)
[2020-03-31] MEDS: Ferrous Sulfate 325 MG Tablet PO (11:35)
[2020-03-31 13:15] VITALS: BP 124/76; PULSE 75; RESP 18; TEMP 36.8; O2SAT 96
--- NOTE | 2020-03-31 15:40 | CASEMGMT ---
Social Work Assessment Labor and Delivery Unit Patient Address: [address] [place] [id number] Phone number: [phone] Date of Referral: 03/30/2020 Time of Referral: 44 Referred By: Dr. Hilda Bunn Date of Intervention: 03/31/2020 Time of Intervention: 1245 Reason for Referral: Maternal history of depression and anxiety History obtained from: Medical records and mother of baby (MOB) Dimple Mc; father of baby (FOB) Evin Mc also present for part of conversation. Household composition: MOB and FOB currently live with MOB's parents. Also in the home are MOB's are the mother's 3 younger nephews who are in the custody of MOB'S mother. MOB and FOB report to have their own living space, and no safety concerns in this home. Patient's parent/guardian status: MOB and FOB have been for 1 month, but together for about a year and a half. Privately MOB denies any form of abuse, control, or intimidation with the FOB. baby, Deanne Mc, is the first child for both parents. Deanne was born on 03/29/2018. Medical History: SARA is 1, para 0 now 1 after delivering Deanne. care started in [place] with Sharda Garcia, and transfer of care occurred to the [facility] group at 19 weeks. Transfer of care occurred due to insurance issues. Baby Deanne delivered via DIANA section. weight 8 pounds 2 ounces. Apgars 8-8-9 at 1-5-10 minutes respectively. Educational Status: SARA graduated from high school, and has some college courses. SARA is able to read, write, and understand what is read. Financial Status: FOB works as a outside machinist supervisor full-time on first shift. No reported financial issues at this time. Infant Supplies: MOB and FOB report to have needed baby supplies including a bassinet, pack and play, and crib. Parents also have a car seat, clothing, diapers, wipes, and a few samples of formula. SARA does plan to breast-feed however and is getting a breast pump. Childcare/Caregiver(s): MOB will be the primary caregiver, with help from family. Transportation: Normally transportation is not an issue, MOB has her goat driver's license and a car. Due to SARA'S surgery, SARA'S mother will be helping out. Programs/Agencies Involved: SARA reports to have insurance through job and family services and also [facility]. SARA reports that a counselor Belle Cabrales from the counseling center. SARA declines any type of referral to help me grow or early Headstart. Children Services/Legal Issues: No reports of any children services or legal history. Behavioral Health Issues: Mental Health History: SARA has a history of depression and anxiety diagnosed in 2011. SARA reports history of overdose and subsequent psychiatric hospitalization at [facility] for about a week. SARA denies any type of suicidal ideation, intent, or planning since that time. SARA reports that she was connected with the counseling center after the hospitalization, and has been doing fairly well. Completed [place] depression screen with SARA this date, score is a 3 which falls below the threshold for current depressive symptoms. SARA does take BuSpar for her anxiety. Reports is unable to tolerate antidepressants, as these types of medication exacerbate MOB'S depression. Substance Use History: SARA denies any type of substance use issues. SARA is a former tobacco user. Family History: SARA'S oldest brother has been diagnosed with bipolar disorder. Drug Screens: No drug screens noted in record. Coping Skills: SARA reports to color or draw when feeling depressed. MOB reports to typically talk with her /FOB as well. Family/Social Stressors: SARA reports she has been unable to go to counseling recently because of the COVID pandemic. Counseling is via telehealth, which SARA reports to not feel real comfortable with. SARA reports she has been calling into the counseling center every week or so to find out when MOB can schedule a [id number] appointment. Support Systems: SARA reports FOB as a primary support person. Additional support from MOB'S parents. Depression/Shaken Baby/Safe Sleeping educated to depression, anxiety, and psychosis. Educated to risk factors, and encouraged MOB to seek out support should symptoms surfaced. MOB expressed understanding, as well as intent to remain in counseling and on medication. Information provided on safe sleeping and shaking baby prevention. ASSESSMENT: Met with MOB and FOB together in room. FOB initially on computer with headphones in and could not hear with this chart writer with same. When headphones taken out FOB remain on computer, but the engage at times in conversation. MOB reports to have all needed supplies to care for the baby, as well as adequate support upon home-going. MOB reports that although this was a surprise, it was welcomed, and at this point MOB reports to feel a positive connection with the baby. MOB reports to feel her emotional health is doing well and overall stable. Denies any concerns regarding depression or anxiety, but reports to no coping skills that she can use. MOB accepted information for mood and anxiety disorders, as well as awaiting [facility]. MOB declines any type of referral to supportive services such as helping grow or early Headstart. No voiced concerns by the nursing staff regarding parent-child interactions. FOB was holding baby upon social work entering the room, and then placed baby in crib when FOB left the room. This chart writer was able to address in a private conversation domestic violence questions and [place] depression screening. MOB held good eye contact and was cooperative during social work assessment. PLAN: MOB and baby to home. Community resource information provided, as well as a packet on mood and anxiety disorders. MOB reports intent to follow-up with the counseling center and with the Counselor MOB is established with already. No other services requested or indicated. -PETER Goldstein, JULIANE *Information documented in this assessment generated with [employer] System*
== END 2020-03-31 13:15 | disposition home or self-care (01) | DRG 788 ==
PROVIDERS: Admitting Provider Obstetrics & Gynecology; PCP Preventive Medicine Occupational Medicine; Referring Provider Obstetrics & Gynecology; Visit Provider Obstetrics & Gynecology
DX: O33.9 Maternal care for disproportion, unspecified (principal); O99.214 Obesity complicating childbirth; E66.01 Morbid (severe) obesity due to excess calories; Z3A.40 40 weeks gestation of pregnancy; Z37.0 Single live birth
CPT/HCPCS: 59025; 59050; 84112; 85025; 85027; 86850; 86900; 86901; 99218; J1756; J7120; A4216; G0378; J2405

== ENCOUNTER 2022-11-15 13:43 | Emergency (ER) | payer OTHER, MEDICAID, SELFPAY ==
[2022-11-15 13:44] VITALS: BP 177/71; PULSE 108; RESP 16; TEMP 36.6; O2SAT 99; BMI 35.6
--- NOTE | 2022-11-15 14:00 | EX.ED.DYSGE1 ---
HPI History of Present Illness Chief Complaint: Nausea/Vomiting [facility] Medical History (Updated 11/15/22 @ 16:[address] Morris Varela, DO) Anxiety Asthma Migraines PCOS (polycystic ovarian syndrome) Home Medications buspirone 10 mg tablet 10 mg DAILY 12/11/18 [History Last Taken 03/28/20 10:00] loratadine 10 mg tablet 10 mg PO DAILY 01/24/20 [History Last Taken 03/28/20 10:00] montelukast 10 mg tablet 10 mg PO DAILY 01/24/20 [History Last Taken 03/27/20 21:00] vits,calcium no.78-iron fumarate-folic acid 29 mg-1 mg tablet 1 tab PO DAILY 01/24/20 [History Last Taken 03/27/20 21:00] metoclopramide HCl 5 mg tablet (Reglan) 5 mg PO Q8H PRN PRN nausea and vomiting 7 days #20 tabs 11/15/22 [Rx Last Taken Unknown] Allergy/AdvReac Type Severity Reaction Status Date / Time No Known Allergies Allergy Verified 11/15/22 13:45 Social History Smoking Status: Never smoker EXAM Physical Exam Const Vital Signs: 11/15/22 13:44 11/15/22 16:11 Temperature 97.9 F Temperature Source Temporal Pulse Rate 108 H Respiratory Rate 16 16 Blood Pressure 177/71 H Blood Pressure Mean 106 Pulse Ox 99 Oxygen Delivery Method Room Air MDM MDM MDM Narrative Medical decision making narrative: HISTORY OF PRESENT ILLNESS: 27-year-old female here with nausea vomiting. States she was exposed to flu. She states she is approximately 15 weeks . She states for the last 24 hours has been unable to keep anything down by mouth including liquids. She states she had intractable nausea and vomiting. Denies any hematemesis or bilious nature to her vomitus. Denies any diarrhea. Denies any sick contacts. Denies any chest pain. Denies any abdominal pain, vaginal bleeding, passage of tissue or leakage of any fluid. Denies any urinary complaints. States her first was complicated by hyperemesis gravidarum. She also states she was exposed to Haemophilus influenzae while visiting with her nephew. REVIEW OF SYSTEMS: Pertinent positives: Nausea vomiting Pertinent negatives: Chest pain, shortness of breath, abdominal pain, vaginal bleeding, leakage of any fluid PHYSICAL EXAM: Nursing triage notes reviewed, Vital signs reviewed Constitutional: please see mdm HENT: MMM, well-hydrated, bilateral TMs pearly gerber with good light reflex, no hyperemia or signs of otitis media. Tonsils without erythema, edema or exudates, uvula midline Eyes: Pupils equal round and reactive to light, Extraocular muscles intact Neck: No stridor, no JVD, full neck ROM Lungs: Clear to auscultation, No wheezing or rales. No increased work of breathing, no conversational dyspnea, no accessory muscle use, no nasal flaring. No respiratory distress noted Heart: Regular rate and rhythm, No murmurs, No rubs and No gallops, 2+ distal pulses (radial, femoral, posterior tibial) in all extremities Abdomen: Soft, there is no tenderness, rigidity, rebound or guarding, no obvious peritoneal signs, no palpable pulsatile abdominal masses, no auscultated abdominal bruit : No CVAT Extremities: No edema Neuro: No focal neurological deficits, cranial nerves II through XII intact, 5/5 strength in all extremities. Intact sensation to light touch in all extremities, 2+ reflexes bilateral patella tendons. Normal gait. No ataxia. Skin: No rash or lesions noted MEDICAL DECISION MAKING: Chief Complaint: Nausea vomiting in External records reviewed: No recent ED visits or hospitalizations noted in the chart [facility] Narrative: The patient was hypertensive, tachycardic afebrile and nontoxic-appearing. Abdominal exam was benign with no peritoneal signs rebound or guarding. I considered the following differential diagnosis: Electrolyte abnormalities, dehydration, hyperemesis gravidarum, UTI, pyelonephritis I obtained labs without significant dehydration. I treat the patient 1 L normal saline and IV Zofran for symptomatic control of her nausea vomiting. There is no significant leukocytosis to suggest systemic inflammation noted. No significant electrolyte abnormalities, no signs of definitive urine infection we will send urine for culture to rule out asymptomatic bacteriuria. No clear life-limiting etiology could be ascertained here in emergency department. Patient's vitals are stable repeat abdominal exam is benign she is appropriate for discharge home. Gave the patient Reglan for home-going. Gave strict return precautions and OB follow-up instructions. Factors affecting care: 15 weeks OB Social determinants of health: Former smoker History obtained from others: None Shared decision making: I will have a discussion with the patient and or visitors regarding risk/benefits of further testing or admission. They will be made aware of of the risk/benefits inherent in this decision they will be given the opportunity to voice understanding. Consults: None Lab Data Attestation: I reviewed the patient's lab results. Lab results narrative: CBC without leukocytosis, severe anemia, no thrombocytopenia. BMP without evidence of significant electrolyte abnormalities, no anion gap, no acute kidney injury. LFTs show no evidence of hepatobiliary pathology. Lipase is wnl indicating no pancreatic inflammation. Labs: Laboratory Results - last 24 hr 11/15/22 11/15/22 11/15/22 14:15 14:15 15:33 WBC 9.0 RBC 4.34 Hgb 13.0 Hct 37.3 MCV 85.9 MCH 30.0 MCHC 34.9 RDW Std Deviation 39.7 RDW Coeff of Jesse 12.7 Plt Count 281 MPV 9.6 Immature Gran % (Auto) 0.200 Neut % (Auto) 76.0 H Lymph % (Auto) 16.8 L [place] % (Auto) 6.3 Eos % (Auto) 0.4 Baso % (Auto) 0.3 Absolute Neuts (auto) 6.8 Absolute Lymphs (auto) 1.50 Nucleated RBC % 0 Sodium 140 Potassium 3.7 Chloride 109 H Carbon Dioxide 22.0 Anion Gap 9 BUN 5 L Creatinine 0.57 Estim Creat Clear Calc 119.33 Est GFR (MDRD) Af Amer 165 Est GFR (MDRD) Non-Af 136 BUN/Creatinine Ratio 8.7 L Glucose 106 Calcium 8.9 Total Bilirubin 0.30 Direct Bilirubin 0.08 AST 14 L ALT 20 Alkaline Phosphatase 50 Total Protein 7.2 Albumin 3.2 Globulin 4.0 Lipase 23 Urine Color Yellow Urine Clarity Clear Urine pH 7.0 Ur Specific [place] 1.010 Urine Protein Negative Urine Glucose (UA) Normal Urine Ketones 15 H Urine Occult Blood 10 H Urine Nitrite Negative Urine Bilirubin Negative Urine Urobilinogen Normal Ur Leukocyte Esterase 100 H Urine RBC 0 SEEN Urine WBC 0-5 SEEN Ur Squamous Epith Cells 0-5 SEEN Urine Bacteria RARE Urine Mucus 0 SEEN Discharge Plan Triage Chief Complaint: Nausea/Vomiting ED Provider: Morris Varela Dx/Rx/DC Orders Clinical Impression: Nausea & vomiting, 15 weeks gestation of Instructions: 2nd Trimester Changes, ED Diet Vomiting Diarrhea Prescriptions: New metoclopramide HCl [Reglan] 5 mg tablet 5 mg PO Q8H PRN PRN (Reason: nausea and vomiting) 7 Days Qty: 20 0RF No Action buspirone 10 MG tablet 10 mg DAILY montelukast 10 MG tablet 10 mg PO DAILY loratadine 10 MG tablet 10 mg PO DAILY vit,[id number] 1 TABLET tablet 1 tab PO DAILY Stand Alone Forms: ED Work / School Excuse Primary Care Provider: Napoleon Clark Referrals: Napoleon Clark DO [Primary Care Provider] - Activity Restrictions/Additional Instructions: Thank you for trusting us with your care today! Please take Reglan every 8 hours for the first 24 hours. Afterwards please take as needed for nausea vomiting Please return to the emergency department if your symptoms change or worsen. Please follow with your primary care physician for further outpatient evaluation and management. Disposition Disposition: Home, Self Care Discharge Date/Time: 11/15/22 17:00
[2022-11-15 14:25] LABS: Absolute Neutrophil Count 6.8 X10^3/uL (2.0-7.7); Basophil# 0.03 X10^3/uL; Basophil% 0.3 % (0-1); Eosinophil# 0.04 X10^3/uL; Eosinophils% 0.4 % (0-5); Hematocrit 37.3 % (37-47); Lymphocyte % 16.8 % (19-41); Mean Corp Hgb Conc 34.9 g/dL (32-36); Mean Corpuscular Volume 85.9 fL (81-99); Mean Platelet Vol. 9.6 fl (6.2-12.0); Monocyte# 0.56 X10^3/uL; Monocyte% 6.3 % (0-10); NRBC Flagged by Analyzer 0 % (0-5); Platelet Count 281 K/mm3 (150-450); RBC Distribution Width CV 12.7 % (11.6-14.6); RBC Distribution Width SD 39.7 fl (35.1-43.9); Red Blood Count 4.34 M/mm3 (4.2-5.4)
[2022-11-15] MEDS: Ondansetron 4 MG/2 ML Vial IV (14:41)
[2022-11-15] MEDS: 0.9% Normal Saline 1,000 ML 1000 ML IV (14:41)
[2022-11-15 14:43] LABS: AST(SGOT) 14 U/L (15-37); Alanine Aminotransfer ALT/SGPT 20 U/L (13-56); Albumin, Serum 3.2 g/dL (3.2-5.0); Alkaline Phosphatase 50 U/L (45-117); Anion Gap 9 (5-15); BUN 5 mg/dL (7-18); BUN/Creat Ratio 8.7 RATIO (10-20); Bilirubin, Direct 0.08 mg/dL (0.00-0.30); Calcium,Total 8.9 mg/dL (8.5-10.1); Chloride 109 mmol/L (98-107); Creatinine, Serum 0.57 mg/dL (0.55-1.02); EST Glomerular Filtration Rate 136 mL/min (>60); Est Glom Filt Rate - Afr Amer 165 mL/min (>60); Estimated Creatinine Clearance 119.33 ml/min; Glucose 106 mg/dL (74-106); Lipase 23 U/L (13-75); Potassium 3.7 mmol/L (3.5-5.1); Protein, Total 7.2 g/dL (6.4-8.2); Sodium Level 140 mmol/L (136-145)
[2022-11-15 15:40] LABS: Mucous, Urine 0 SEEN /hpf (<or=2+); Red Blood Cells-Urine 0 SEEN /hpf (0-5)
[2022-11-15 15:48] LABS: Color, Urine Yellow (Yellow); Glucose, Dipstick Normal (Normal); Ketone-Dipstick 15 mg/dl (Negative); Leukocyte Esterase-Dipstick 100 /ul (Negative); Nitrite-Dipstick Negative (Negative); Occult Blood-Urine 10 /ul (Negative); Protein-Dipstick Negative (Negative); Urine Bilirubin Dipstick Negative (Negative); Urine Clarity Clear (Clear); Urine Urobilinogen Normal (Normal)
[2022-11-15 16:11] VITALS: RESP 16
[2022-11-15 16:16] LABS: Bacteria RARE /hpf (None Seen); Squamous Epithelial Cells - UA 0-5 SEEN /hpf (5-10); White Blood Cells 0-5 SEEN /hpf (0-5)
== END 2022-11-15 17:00 | disposition home or self-care (01) ==
PROVIDERS: Emergency Provider Emergency Medicine; PCP Preventive Medicine Occupational Medicine; Visit Provider Emergency Medicine
DX: O21.0 Mild hyperemesis gravidarum (principal); Z3A.15 15 weeks gestation of pregnancy; Z87.891 Personal history of nicotine dependence
CPT/HCPCS: 80048; 80076; 81001; 83690; 85025; 87086; 87088; 87428; 96361; 96374; 99283; J7030; A4216; J2405

== ENCOUNTER 2023-01-14 14:19 | Emergency (ER) | payer OTHER, MEDICAID, SELFPAY ==
[2023-01-14 14:21] VITALS: PULSE 97; RESP 18; TEMP 36.5; O2SAT 96; BMI 37.3
[2023-01-14 15:04] LABS: ALB/GLOB Ratio 0.7 RATIO (0.9-2.4); AST(SGOT) 29 U/L (15-37); Alanine Aminotransfer ALT/SGPT 21 U/L (13-56); Albumin, Serum 2.9 g/dL (3.2-5.0); Alkaline Phosphatase 84 U/L (45-117); Anion Gap 8 (5-15); BUN 4 mg/dL (7-18); BUN/Creat Ratio 6.4 RATIO (10-20); Calcium,Total 8.6 mg/dL (8.5-10.1); Chloride 107 mmol/L (98-107); Creatinine, Serum 0.62 mg/dL (0.55-1.02); EST Glomerular Filtration Rate 123 mL/min (>60); Est Glom Filt Rate - Afr Amer 149 mL/min (>60); Estimated Creatinine Clearance 109.71 ml/min; Globulin 4.3 g/dL (2.2-4.2); Glucose 100 mg/dL (74-106); Potassium 3.7 mmol/L (3.5-5.1); Protein, Total 7.2 g/dL (6.4-8.2); Sodium Level 138 mmol/L (136-145)
[2023-01-14 15:09] LABS: Absolute Lymphocyte Count 1.62 X10^3/uL (0.83-4.51); Absolute Neutrophil Count 6.6 X10^3/uL (2.0-7.7); Basophil# 0.08 X10^3/uL; Basophil% 0.8 % (0-1); Eosinophil# 0.18 X10^3/uL; Eosinophils% 1.9 % (0-5); Hematocrit 35.4 % (37-47); Lymphocyte # 1.62 X10^3/ul (0.83-4.51); Lymphocyte % 16.7 % (19-41); Mean Corp Hgb Conc 33.9 g/dL (32-36); Mean Corpuscular Hgb 29.8 pg (27.0-32.0); Mean Corpuscular Volume 87.8 fL (81-99); Mean Platelet Vol. 10.1 fl (6.2-12.0); Monocyte# 1.04 X10^3/uL; Monocyte% 10.7 % (0-10); NRBC Flagged by Analyzer 0 % (0-5); Neutrophil # 6.61 X10^3/uL (2.7-7.7); Neutrophil % 68.1 % (47-70); Platelet Count 261 K/mm3 (150-450); Red Blood Count 4.03 M/mm3 (4.2-5.4); White Blood Count 9.7 K/mm3 (4.4-11.0)
--- NOTE | 2023-01-14 15:35 | US_ITS ---
STUDY: ABDOMINAL ULTRASOUND - RIGHT UPPER QUADRANT REASON FOR VISIT: Female, 27 years old ruq pain TECHNIQUE: Ultrasound evaluation of the right upper quadrant was performed with real-time and static gerber-scale imaging. TECHNICAL QUALITY: Adequate. COMPARISON: CT scan 12/11/2018. FINDINGS: Liver: The liver measures 16.4 cm. There is normal echogenicity of the liver. The bile ducts are within normal limits. There is hepatic color flow. The direction of portal flow is hepatopetal. There is no demonstrated mass lesion. Gallbladder: Normal distended gallbladder. The gallbladder wall measures 1.5 mm. There is a negative sonographic Allan''s sign. There is no pericholecystic fluid. There are no gallstones. Mild sludge. Common Bile Duct (C.B.D.): The common bile duct measures 4 mm. Pancreas: Normal size of the head, body and tail of the pancreas. There is normal echogenicity of the pancreas. There is no demonstrated pancreatic mass or cyst. Right Kidney: Normal size of the right kidney. The right kidney measures 11.5 cm. Normal renal cortex. The right cortex measures 1 cm. There is no demonstrated renal mass or cyst. There is no right hydronephrosis. US/Gallbladder IMPRESSION: Mild sludge in the gallbladder, otherwise negative. Electronically Signed: Felix Purvis MD at 17:18 EDT ,
[2023-01-14 15:38] VITALS: BP 111/65; PULSE 86; RESP 14; O2SAT 96
--- NOTE | 2023-01-14 15:38 | ED.VIS.GI ---
HPI <EDWINA Hess - Last Filed: 01/14/23 19:30> HPI - GI History of Present Illness Chief Complaint: Abd Pain Narrative Narrative: 27-year-old female is 23 weeks and was sent in by OB for RUQ abdominal pain. Over the last week she has had 3 episodes of RUQ abdominal pain after eating. Today around noon she had a breakfast sandwich, chicken strips and an apple about 30 minutes later developed RUQ abdominal pain and nausea. She took Tylenol and pain is subsiding. She having normal bladder and bowel movements. She takes Reglan every morning for nausea during her . Surgical history includes x1. PFSH <EDWINA Hess - Last Filed: 01/14/23 19:30> [facility] Medical History (Updated 01/14/23 @ 18:50 by EDWINA Hess) Anxiety Asthma Migraines PCOS (polycystic ovarian syndrome) Home Medications buspirone 10 mg tablet 10 mg DAILY 12/11/18 [History Last Taken 03/28/20 10:00] loratadine 10 mg tablet 10 mg PO DAILY 01/24/20 [History Last Taken 03/28/20 10:00] montelukast 10 mg tablet 10 mg PO DAILY 01/24/20 [History Last Taken 03/27/20 21:00] vits,calcium no.78-iron fumarate-folic acid 29 mg-1 mg tablet 1 tab PO DAILY 01/24/20 [History Last Taken 03/27/20 21:00] metoclopramide HCl 5 mg tablet (Reglan) 5 mg PO Q8H PRN PRN nausea and vomiting 7 days #20 tabs 11/15/22 [Rx Last Taken Unknown] nitrofurantoin monohydrate/macrocrystals 100 mg capsule 100 mg PO Q12 #10 CAPSULES 11/17/22 [Rx Last Taken Unknown] Allergy/AdvReac Type Severity Reaction Status Date / Time No Known Allergies Allergy Verified 01/14/23 14:20 Social History Smoking Status: Never smoker ROS <EDWINA Hess - Last Filed: 01/14/23 19:30> ROS ED ROS Narrative Constitutional: Negative for fever, chills, malaise. CVS: Negative for palpitations, chest pain, syncope. Respiratory: Negative for shortness of breath, cough. GI: Positive for abdominal pain, nausea. Negative for vomiting, diarrhea, constipation, melena, hematochezia. : Negative for dysuria, hematuria. EXAM <EDWINA Hess - Last Filed: 01/14/23 19:30> Physical Exam Narrative Exam Narrative: CONST: Patient sitting in no acute distress. EYES: Normal inspection. NECK: Normal inspection. RESP: No respiratory distress, CTAB. CVS: Regular rate and rhythm, no murmur, no gallop. ABD: Soft gravid abdomen with focal RUQ tenderness, negative Allan sign. No guarding or rebound, nondistended, no hepatosplenomegaly. SKIN: Color normal, no rash, warm, dry, intact. EXTREMITIES: Normal appearance, no pedal edema. NEURO: Oriented x4. PSYCH: Normal affect. Const Vital Signs: 01/14/23 14:21 01/14/23 15:38 01/14/23 16:30 Temperature 97.7 F L Temperature Source Temporal Pulse Rate 97 86 76 Respiratory Rate 18 14 14 Blood Pressure 111/65 119/62 Blood Pressure Mean 80 81 Pulse Ox 96 96 98 Oxygen Delivery Method Room Air Room Air 01/14/23 17:15 01/14/23 19:02 Temperature Temperature Source Pulse Rate 77 80 Respiratory Rate 16 14 Blood Pressure 113/64 115/71 Blood Pressure Mean 80 85 Pulse Ox 96 98 Oxygen Delivery Method Room Air Room Air <Dr. Aime Raymond MD - Last Filed: 01/14/23 23:47> Physical Exam Const Vital Signs: 01/14/23 14:21 01/14/23 15:38 01/14/23 16:30 Temperature 97.7 F L Temperature Source Temporal Pulse Rate 97 86 76 Respiratory Rate 18 14 14 Blood Pressure 111/65 119/62 Blood Pressure Mean 80 81 Pulse Ox 96 96 98 Oxygen Delivery Method Room Air Room Air 01/14/23 17:15 01/14/23 19:02 Temperature Temperature Source Pulse Rate 77 80 Respiratory Rate 16 14 Blood Pressure 113/64 115/71 Blood Pressure Mean 80 85 Pulse Ox 96 98 Oxygen Delivery Method Room Air Room Air MDM <EDWINA Hess - Last Filed: 01/14/23 19:30> MDM MDM Narrative Medical decision making narrative: History gathered from: Patient and her mom Patient is 23 weeks presenting with RUQ abdominal pain after eating. She appears well and nontoxic. Vital signs within normal limits. She has focal right upper quadrant tenderness with no peritoneal signs. Negative Allan signs. The rest of her abdomen is nontender and she is having no vaginal bleeding. CBC, CMP, and lipase are unremarkable. Urinalysis with 1+ bacteria but is 5-10 epithelials and since she has no symptoms and will be cultured. I spoke with on-call BENEFITS ANALYST Dr. Mora at [facility] to relay these findings and they are comfortable with outpatient follow-up. I discussed with the patient dietary changes for gallbladder etiologies and she expressed understanding and was discharged in stable condition. Differential: GERD, biliary colic, cholecystitis, choledocholithiasis Lab Data Attestation: I reviewed the patient's lab results. Labs: Laboratory Results - last 24 hr 01/14/23 01/14/23 14:31 18:05 WBC 9.7 RBC 4.03 L Hgb 12.0 Hct 35.4 L MCV 87.8 MCH 29.8 MCHC 33.9 RDW Std Deviation 42.0 RDW Coeff of Jesse 13.0 Plt Count 261 MPV 10.1 Immature Gran % (Auto) 1.800 H Neut % (Auto) 68.1 Lymph % (Auto) 16.7 L [place] % (Auto) 10.7 H Eos % (Auto) 1.9 Baso % (Auto) 0.8 Absolute Neuts (auto) 6.6 Absolute Lymphs (auto) 1.62 Nucleated RBC % 0 Sodium 138 Potassium 3.7 Chloride 107 Carbon Dioxide 23.0 Anion Gap 8 BUN 4 L Creatinine 0.62 Estim Creat Clear Calc 109.71 Est GFR (MDRD) Af Amer 149 Est GFR (MDRD) Non-Af 123 BUN/Creatinine Ratio 6.4 L Glucose 100 Calcium 8.6 Total Bilirubin 0.30 AST 29 ALT 21 Alkaline Phosphatase 84 Total Protein 7.2 Albumin 2.9 L Globulin 4.3 H Albumin/Globulin Ratio 0.7 L Lipase 36 Urine Color Yellow Urine Clarity Sl. Cloudy Urine pH 8.0 Ur Specific [place] 1.015 Urine Protein Negative Urine Glucose (UA) Normal Urine Ketones 15 H Urine Occult Blood Negative Urine Nitrite Negative Urine Bilirubin Negative Urine Urobilinogen Normal Ur Leukocyte Esterase 25 H Urine RBC 0 SEEN Urine WBC 0 SEEN Ur Squamous Epith Cells 5-10 SEEN Urine Bacteria 1+ Urine Mucus 0 SEEN Radiography Diagnostic Testing: Clinical Impression(s) from Imaging Studies Gallbladder Ultrasound 01/14/23 15:35 IMPRESSION: Mild sludge in the gallbladder, otherwise negative. Electronically Signed: Felix Purvis MD at 17:18 EDT , <Dr. Aime Raymond MD - Last Filed: 01/14/23 23:47> [facility] Lab Data Labs: Laboratory Results - last 24 hr 01/14/23 01/14/23 14:31 18:05 WBC 9.7 RBC 4.03 L Hgb 12.0 Hct 35.4 L MCV 87.8 MCH 29.8 MCHC 33.9 RDW Std Deviation 42.0 RDW Coeff of Jesse 13.0 Plt Count 261 MPV 10.1 Immature Gran % (Auto) 1.800 H Neut % (Auto) 68.1 Lymph % (Auto) 16.7 L [place] % (Auto) 10.7 H Eos % (Auto) 1.9 Baso % (Auto) 0.8 Absolute Neuts (auto) 6.6 Absolute Lymphs (auto) 1.62 Nucleated RBC % 0 Sodium 138 Potassium 3.7 Chloride 107 Carbon Dioxide 23.0 Anion Gap 8 BUN 4 L Creatinine 0.62 Estim Creat Clear Calc 109.71 Est GFR (MDRD) Af Amer 149 Est GFR (MDRD) Non-Af 123 BUN/Creatinine Ratio 6.4 L Glucose 100 Calcium 8.6 Total Bilirubin 0.30 AST 29 ALT 21 Alkaline Phosphatase 84 Total Protein 7.2 Albumin 2.9 L Globulin 4.3 H Albumin/Globulin Ratio 0.7 L Lipase 36 Urine Color Yellow Urine Clarity Sl. Cloudy Urine pH 8.0 Ur Specific [place] 1.015 Urine Protein Negative Urine Glucose (UA) Normal Urine Ketones 15 H Urine Occult Blood Negative Urine Nitrite Negative Urine Bilirubin Negative Urine Urobilinogen Normal Ur Leukocyte Esterase 25 H Urine RBC 0 SEEN Urine WBC 0 SEEN Ur Squamous Epith Cells 5-10 SEEN Urine Bacteria 1+ Urine Mucus 0 SEEN Radiography Diagnostic Testing: Clinical Impression(s) from Imaging Studies Gallbladder Ultrasound 01/14/23 15:35 IMPRESSION: Mild sludge in the gallbladder, otherwise negative. Electronically Signed: Felix Purvis MD at 17:18 EDT , Treatment and Re-Evaluation :: I have personally performed a face to face assessment of the patient and have reviewed the DANYELLE Note. I performed a substantive portion of the visit including all aspects of the following. My quintanilla findings include: History: Patient presents with episodes of right upper quadrant pain. Her first 1 was about 2 weeks ago. She has had her fourth 1 today. There is always right upper quadrant. She has never had biliary issues but it does run heavily in the women in her family. No fevers or chills. No pelvic pain or uterine pain or cramping. No discharge or bleeding. She is currently about 23 weeks . Only abdominal surgery of prior C-sections. Of note, the patient has been having nausea throughout her . It does worsen with this but she has been having this ongoing.. Exam: Patient awake alert no acute distress. Lungs are clear. Abdomen does show gravid uterus right at about the umbilicus consistent with her dates. There is very minimal right upper quadrant tenderness but her symptoms are little bit better now. No tenderness anywhere else in the abdomen. No rebound or guarding. Medical Decision Making: Patient will have blood work and ultrasound done. These are pending at this time. Discharge Plan Triage Chief Complaint: Abd Pain ED Midlevel Provider: Shanae Larios ED Provider: Aime Raymond Dx/Rx/DC Orders Clinical Impression: Biliary colic, Asymptomatic bacteriuria Instructions: ED Abd Pain Preg Gallstones Prescriptions: No Action buspirone 10 MG tablet 10 mg DAILY montelukast 10 MG tablet 10 mg PO DAILY loratadine 10 MG tablet 10 mg PO DAILY vit,[id number] 1 TABLET tablet 1 tab PO DAILY metoclopramide HCl [Reglan] 5 mg tablet 5 mg PO Q8H PRN PRN (Reason: nausea and vomiting) 7 Days Qty: 20 0RF nitrofurantoin monohyd/m-cryst [nitrofurantoin monohyd/m-cryst] 100 mg capsule 100 mg PO Q12 Qty: 10 0RF Primary Care Provider: Napoleon Clark Referrals: Napoleon Clark DO [Primary Care Provider] - Activity Restrictions/Additional Instructions: Avoid fried or fatty foods, eat veggies and lean meats etc. Follow up with your OBGYN. Disposition Disposition: Home, Self Care Discharge Date/Time: 01/14/23 19:32
[2023-01-14 16:22] LABS: Lipase 36 U/L (13-75)
[2023-01-14 16:30] VITALS: BP 119/62; PULSE 76; RESP 14; O2SAT 98
[2023-01-14 17:15] VITALS: BP 113/64; PULSE 77; RESP 16; O2SAT 96
[2023-01-14 18:12] LABS: Mucous, Urine 0 SEEN /hpf (<or=2+); Red Blood Cells-Urine 0 SEEN /hpf (0-5); White Blood Cells 0 SEEN /hpf (0-5)
[2023-01-14 18:20] LABS: Color, Urine Yellow (Yellow); Glucose, Dipstick Normal (Normal); Ketone-Dipstick 15 mg/dl (Negative); Leukocyte Esterase-Dipstick 25 /ul (Negative); Nitrite-Dipstick Negative (Negative); Occult Blood-Urine Negative /ul (Negative); Protein-Dipstick Negative (Negative); Specific Gravity, Urine 1.015 (1.002-1.030); Urine Bilirubin Dipstick Negative (Negative); Urine Clarity Sl. Cloudy (Clear); Urine Urobilinogen Normal (Normal)
[2023-01-14 18:46] LABS: Bacteria 1+ /hpf (None Seen); Squamous Epithelial Cells - UA 5-10 SEEN /hpf (5-10)
[2023-01-14 19:02] VITALS: BP 115/71; PULSE 80; RESP 14; O2SAT 98
== END 2023-01-14 19:32 | disposition home or self-care (01) ==
PROVIDERS: Physician Assistant; Emergency Provider Emergency Medicine; PCP Preventive Medicine Occupational Medicine; Visit Provider Emergency Medicine
DX: O26.612 Liver and biliary tract disorders in pregnancy, second trimester (principal); O26.892 Other specified pregnancy related conditions, second trimester; K80.50 Calculus of bile duct without cholangitis or cholecystitis without obstruction; Z3A.23 23 weeks gestation of pregnancy; R82.71 Bacteriuria; J45.909 Unspecified asthma, uncomplicated; O99.512 Diseases of the respiratory system complicating pregnancy, second trimester; O99.612 Diseases of the digestive system complicating pregnancy, second trimester
CPT/HCPCS: 76705; 80053; 81001; 83690; 85025; 87086; 87088; 99283; A4216

== ENCOUNTER 2023-05-02 09:40 | Inpatient (IN) | payer OTHER, MEDICAID, SELFPAY ==
[2023-05-02] VITALS (17 sets, daily range): BP systolic 101–128; BP diastolic 48–75; PULSE 86–99; RESP 13–20; TEMP 36.1–36.4; O2SAT 94–98; BMI 41.7
--- NOTE | 2023-05-02 07:57 | PCM.HP.OB ---
HPI - General General Date of Admission: 05/02/23 Date of Service: 05/02/23 Chief Complaint: SCHEDULED C/S HPI Narrative SUMAN ZACARIAS, is a 28 F who presents for a scheduled repeat C/S. She has no complaints. No ctx, vb, lof. Good FM. PFSH [facility] Medical History (Updated 05/02/23 @ 08:[address] Kathy Perea, DO) Anxiety Asthma Migraines PCOS (polycystic ovarian syndrome) Home Medications buspirone 10 mg tablet 10 mg DAILY 12/11/18 [History Last Taken 03/28/20 10:00] loratadine 10 mg tablet 10 mg PO DAILY 01/24/20 [History Last Taken 03/28/20 10:00] montelukast 10 mg tablet 10 mg PO DAILY 01/24/20 [History Last Taken 03/27/20 21:00] vits,calcium no.78-iron fumarate-folic acid 29 mg-1 mg tablet 1 tab PO DAILY 01/24/20 [History Last Taken 03/27/20 21:00] metoclopramide HCl 5 mg tablet (Reglan) 5 mg PO Q8H PRN PRN nausea and vomiting 7 days #20 tabs 11/15/22 [Rx Last Taken Unknown] nitrofurantoin monohydrate/macrocrystals 100 mg capsule 100 mg PO Q12 #10 CAPSULES 11/17/22 [Rx Last Taken Unknown] Allergy/AdvReac Type Severity Reaction Status Date / Time No Known Allergies Allergy Verified 01/14/23 14:20 Social History Smoking Status: Never smoker History Elective abortions Hx Para 0 Spontaneous abortions Hx # Term Pregnancies Ectopic pregnancies Hx # Pregnancies Multiple births # of living children Physical Exam Const alert and no apparent distress General Appearance: comfortable Resp normal respiratory effort GI soft to palpation, non-tender and non-distended Labs Labs Labs: Blood Type O POSITIVE Antibody Screen NEGATIVE Hct 35.4 % (37-47) L Hgb 12.0 g/dL (12.0-15.0) Rhogam given: No Assessment & Plan (1) 39 weeks gestation of : PLAN: Risks, Benefits, and alternatives to a repeat section and consent signed. Patient desires to proceed with a repeat section. Routine preoperative care. (2) Obesity affecting : (3) History of delivery:
[2023-05-02] MEDS: Lactated Ringers 1,000 ML 999 ML IV (10:35)
[2023-05-02 10:58] LABS: Absolute Lymphocyte Count 2.12 X10^3/uL (0.83-4.51); Absolute Neutrophil Count 6.6 X10^3/uL (2.0-7.7); Basophil# 0.05 X10^3/uL; Basophil% 0.5 % (0-1); Eosinophil# 0.08 X10^3/uL; Eosinophils% 0.8 % (0-5); Hematocrit 31.2 % (37-47); Lymphocyte # 2.12 X10^3/ul (0.83-4.51); Lymphocyte % 21.6 % (19-41); Mean Corp Hgb Conc 32.1 g/dL (32-36); Mean Corpuscular Hgb 27.1 pg (27.0-32.0); Mean Corpuscular Volume 84.6 fL (81-99); Mean Platelet Vol. 10.9 fl (6.2-12.0); Monocyte# 0.86 X10^3/uL; Monocyte% 8.7 % (0-10); NRBC Flagged by Analyzer 0 % (0-5); Neutrophil # 6.58 X10^3/uL (2.7-7.7); Platelet Count 222 K/mm3 (150-450); RBC Distribution Width CV 13.3 % (11.6-14.6); RBC Distribution Width SD 40.9 fl (35.1-43.9); Red Blood Count 3.69 M/mm3 (4.2-5.4); White Blood Count 9.8 K/mm3 (4.4-11.0)
[2023-05-02] MEDS: Lactated Ringers 1,000 ML 150 ML IV (11:37)
[2023-05-02] MEDS: Acetaminophen 500 MG Tablet 1000 MG PO ×3 (11:38→23:32)
[2023-05-02] MEDS: Sodium Citrate/Citric Acid 30 ML UDC PO (11:47)
[2023-05-02] MEDS: Cefazolin 2 GM in 0.9% Normal Saline (100mL Bag) 100 ML IV (12:00)
[2023-05-02 12:22] LABS: Syphilis Antibodies Non-reactive
--- NOTE | 2023-05-02 12:52 | EX.PCM.OBRPT ---
Maternal Data Information Final HELGA: 05/08/23 Gestational age: 39 1/7 Details Operative Information Date of Procedure: 05/02/23 Pre-Operative Diagnosis: previous c/s Post-Operative Diagnosis: same Indications for : Repeat Elective Classification: Scheduled Procedure Type: low transverse aircraft machinist #1: Pranav Navarrete aircraft machinist #2: Martita Parra MS3 Type of Anesthesia: Spinal Anesthesiologist: Lina Matias Special Medications: duramorph Antibiotic Given: Ancef 2 grams IV x1 Drain: Carroll to straight drain Estimated Blood Loss: 800 Fluids Replaced: 900 Procedure Start Time: 12:28 Procedure Stop Time: 13:03 Time of Delivery: 12:30 Findings Description of Procedure: The patient was taken to the operating room. She was prepped and draped in the dorsal supine position with a leftward tilt. A Pfannenstiel skin incision was made approximately 2 cm above the symphysis pubis and carried through to underlying layer fascia with the scalpel. The fascia was incised incised in the midline and extended laterally with the Brown scissors. The fascia was dissected off the rectus muscles with blunt and sharp dissection. The rectus muscles were in the midline and the peritoneum was entered [bluntly]. The peritoneal incision was stretched and the bladder blade was placed. The uterine incision was made in a low transverse fashion with the scalpel and extended superiorly and inferiorly with blunt dissection. The amniotic membranes were ruptured bluntly and clear amniotic fluid returned. The infant's head was brought to the incision in the flexed position and delivered without difficulty. The remainder of the infant was delivered with gentle traction and fundal pressure in the standard fashion. The mouth and nares were bulb suctioned. The cord was clamped and cut as the was stimulated. Cord clamping was delayed. The was handed off to the waiting nursing staff. The placenta was delivered with fundal massage and gentle traction in the standard fashion. The uterus was exteriorized and cleared of all clots and debris. The cervix was dilated with a ring forcep. The uterine incision was closed with #1 Vicryl in a running locked fashion. A second layer of the same suture was used in an imbricating fashion to obtain hemostasis. The incision was examined and was found to be hemostatic. The uterus was placed back into the peritoneal cavity and hemostasis was again confirmed. The rectus muscles were examined and any bleeding was Bovie cauterized. Cody was then placed over the uterine incision for some oozing from the peritoneal edges. The parietal peritoneum and rectus muscles were closed en bloc with an 0 Vicryl running suture. Cody was placed over the rectus muscles. The rectus fascia was examined and any bleeding was Bovie cauterized and the rectus fascia was closed with #1 PDS suture in a running standard fashion. The subcutaneous tissue was examining and any bleeding was Bovie cauterized. Cody was placed in the subcutaneous layer. The subcutaneous tissue was reapproximated with 3-0 Vicryl suture. The skin was closed in a subcuticular fashion by the CHORAL TEACHER with me present in the labor and delivery suite. I performed the remainder of the procedure with assistance. All sponge, lap, and needle counts were correct. The patient was taken to her room for recovery in a stable condition. Presentation: Positive for Vertex Amniotic Membrane Rupture Type: Artificial Amniotic Fluid Description: Clear Placental Delivery Description: Expressed Placenta Disposition: [facility] Specimen(s) Sent to Pathology: none Cord Vessel Description: 3 Vessels Cord Entanglement: None Infant A Gender: Female ([place] 8lb 6oz) (1 minute): 9 (5 minute): 9 Delayed Cord Clamping: Yes Complications Complications: none
[2023-05-02] MEDS: Oxytocin 15 Units/NS 250ml 15 UNITS/250 ML IV.SOLN 83 UNITS IV (13:14)
[2023-05-02] MEDS: Ketorolac 30 MG/ML Syringe IV ×2 (13:39→19:22)
--- NOTE | 2023-05-02 18:04 | NURSING ---
Patient reports still having some tingling in her bilateral lower extremities. Will continue to evaluate for ambulation.
[2023-05-02] MEDS: 0.9% Saline Lock 10 ML Syringe IV (19:23)
[2023-05-03] VITALS (9 sets, daily range): BP systolic 94–125; BP diastolic 51–59; PULSE 81–90; RESP 15–17; TEMP 35.8–36.4; O2SAT 96–97
[2023-05-03] MEDS: Enoxaparin 40 MG/0.4 ML Syringe SC ×2 (00:32→12:19)
[2023-05-03] MEDS: Ketorolac 30 MG/ML Syringe IV (01:15)
[2023-05-03] MEDS: 0.9% Saline Lock 10 ML Syringe IV ×2 (01:15→09:46)
[2023-05-03 04:50] LABS: Hematocrit 25.4 % (37-47); Hemoglobin 8.3 g/dL (12.0-15.0); Mean Corp Hgb Conc 32.7 g/dL (32-36); Mean Corpuscular Hgb 27.9 pg (27.0-32.0); Mean Corpuscular Volume 85.2 fL (81-99); Mean Platelet Vol. 10.6 fl (6.2-12.0); Platelet Count 224 K/mm3 (150-450); RBC Distribution Width CV 13.2 % (11.6-14.6); RBC Distribution Width SD 40.6 fl (35.1-43.9); Red Blood Count 2.98 M/mm3 (4.2-5.4); White Blood Count 16.4 K/mm3 (4.4-11.0)
[2023-05-03] MEDS: Acetaminophen 500 MG Tablet 1000 MG PO ×2 (05:20→12:18)
[2023-05-03] MEDS: Ibuprofen 600 MG Tablet PO ×2 (07:52→14:27)
--- NOTE | 2023-05-03 08:59 | PCM.PN.OB ---
Subjective Subjective Doing well per patient and nursing staff. Ambulating and taking PO without difficulty. Voiding and passing flatus. Pain controlled. , services for assistance. Denies headache, visual changes, chest pain, shortness of breath, leg pain or increased bleeding. Lochia normal. Objective Data Objective Data Vital Signs: Vital Signs Temp Pulse Resp BP Pulse Ox O2 Del Method 97.6 F L 90 15 109/51 L 97 Room Air 05/03/23 04:37 05/03/23 04:37 05/03/23 05:21 05/03/23 04:37 05/03/23 05:21 05/03/23 05:21 Oxygen Delivery Method Room Air Weight: 228 lb Body Mass Index (BMI) 41.7 Intake & Output: Intake and Output for Last 24 Hours 05/01/23 05/02/23 05/03/23 23:59 23:59 23:59 Intake Total 1492.5 / 1492.5 Output Total 2500 / 2500 700 / 700 Balance -1007.5 / -1007.5 -700 / -700 Lab / Micro Data 05/03/23 04:45 Labs: Laboratory Results - last 24 hr 05/02/23 10:35: WBC 9.8, RBC 3.69 L, Hgb 10.0 L, Hct 31.2 L, MCV 84.6, MCH 27.1, MCHC 32.1, RDW Std Deviation 40.9, RDW Coeff of Jesse 13.3, Plt Count 222, MPV 10.9, Immature Gran % (Auto) 1.400 H, Neut % (Auto) 67.0, Lymph % (Auto) 21.6, [place] % (Auto) 8.7, Eos % (Auto) 0.8, Baso % (Auto) 0.5, Absolute Neuts (auto) 6.6, Absolute Lymphs (auto) 2.12, Nucleated RBC % 0, Syphilis Total Ab Non-reactive, Blood Type O POSITIVE, Antibody Screen NEGATIVE 05/03/23 04:45: WBC 16.4 H, RBC 2.98 L, Hgb 8.3 L, Hct 25.4 L, MCV 85.2, MCH 27.9, MCHC 32.7, RDW Std Deviation 40.6, RDW Coeff of Jesse 13.2, Plt Count 224, MPV 10.6 ROS Constitutional Constitutional: Reports systems reviewed and no addt'l complaints, except as documented; Denies headache(s) Eyes Eyes: Denies acute decrease in peripheral vision, blurry vision or change in vision ENT HEENT: Reports systems reviewed and no addt'l complaints, except as documented Cardiovascular Cardiovascular: Denies chest pain or dizziness Respiratory/Chest Respiratory/Chest: Denies cough, dyspnea, dyspnea on exertion, shortness of breath at rest or shortness of breath with exertion Gastrointestinal Gastrointestinal: Denies abdominal pain, diarrhea, nausea or vomiting Genitourinary Genitourinary: Denies abdominal discomfort Musculoskeletal Musculoskeletal: Denies limited range of motion Integumentary Integumentary: Reports systems reviewed and no addt'l complaints, except as documented Neurologic Neurologic: Reports systems reviewed and no addt'l complaints, except as documented Psychiatric Psychiatric: Reports systems reviewed and no addt'l complaints, except as documented Endocrine Endocrinology: Reports systems reviewed and no addt'l complaints, except as documented Hematologic/Lymphatic Hematologic/Lymphatic: Reports systems reviewed and no addt'l complaints, except as documented Allergic/Immunologic Allergic/Immunologic: Reports systems reviewed and no addt'l complaints, except as documented Physical Exam Const alert and oriented x3 General Appearance: cooperative Orientation / Consciousness: awake, oriented to person, oriented to place and oriented to time Exam Limitations: no limitations HEENT normocephalic Head and Scalp: normal to inspection, normocephalic and atraumatic Face and Sinus: normal facial exam Eyes General Eye: normal appearance of both eyes Neck full ROM Chest Chest: symmetrical chest wall rise Resp normal respiratory effort and normal air movement Auscultation: clear to auscultation bilaterally Cardio regular rate, regular rhythm, S1 normal heart sound, S2 normal heart sound, no murmurs, no rub, no gallops and no clicks GI normal to inspection, nondistended, normoactive bowel sounds and non-tender appearance of the vagina normal Bladder / Kidney Exam: no CVA tenderness Back/Spine normal ROM Extremity normal to inspection and full ROM Skin no rashes or lesions noted Neuro oriented x3 and moves all extremities Sensorium / Orientation: awake, alert and oriented to person Assessment & Plan (1) Postoperative pain: (2) History of delivery: PLAN: Plan 1) Post op C/S 2) I&O 3) Vitals stable 4) Pain management 5) Follow up for incision check and 6 week PP visit 6) D/C home today
--- NOTE | 2023-05-03 08:59 | PCM.DC.SUM ---
Providers Date of Admission: 05/02/23 Primary Care Physician: Dr. Napoleon Clark DO Reason For Visit: REPEAT Diagnosis Discharge Diagnosis (1) 39 weeks gestation of : Status: Acute Code(s): Z3A.39 - 39 weeks gestation of (2) Obesity affecting : Status: Acute Code(s): O99.210 - Obesity complicating , unspecified trimester (3) History of delivery: Status: Acute Code(s): Z98.891 - History of uterine scar from previous surgery Medications at Discharge Home Medications buspirone 10 mg tablet 10 mg PO DAILY anxiety 12/11/18 montelukast 10 mg tablet 10 mg PO DAILY allergy 01/24/20 vits,calcium no.78-iron fumarate-folic acid 29 mg-1 mg tablet 1 tab PO DAILY 01/24/20 acetaminophen 500 mg tablet 1,000 mg (2 x 500 mg) PO Q6 #0 tabs 05/03/23 ibuprofen 600 mg tablet 600 mg PO Q6H #0 tabs 05/03/23 oxycodone 5 mg tablet 5 - 10 mg (1 - 2 x 5 mg) PO Q4H PRN PRN Pain Score 4-10 7 days #10 tabs 05/03/23 sennosides 8.6 mg-docusate sodium 50 mg tablet (Stool Softener-Stimulant Laxative) 1 - 2 tab PO DAILY #30 tabs 05/03/23 Hospital Course Summary of Care Provided Minutes Spent on Discharge: 15 Hospital Course: Presented for repeat LTCS. course uncomplicated. Discharge home on postoperative day #1 Weight / BMI Weight Weight: 228 lb Body Mass Index (BMI) 41.7 ABG / Lab / Microbiology Data 05/03/23 04:45 Laboratory: Laboratory Results - last 24 hr 05/02/23 10:35: WBC 9.8, RBC 3.69 L, Hgb 10.0 L, Hct 31.2 L, MCV 84.6, MCH 27.1, MCHC 32.1, RDW Std Deviation 40.9, RDW Coeff of Jesse 13.3, Plt Count 222, MPV 10.9, Immature Gran % (Auto) 1.400 H, Neut % (Auto) 67.0, Lymph % (Auto) 21.6, [place] % (Auto) 8.7, Eos % (Auto) 0.8, Baso % (Auto) 0.5, Absolute Neuts (auto) 6.6, Absolute Lymphs (auto) 2.12, Nucleated RBC % 0, Syphilis Total Ab Non-reactive, Blood Type O POSITIVE, Antibody Screen NEGATIVE 05/03/23 04:45: WBC 16.4 H, RBC 2.98 L, Hgb 8.3 L, Hct 25.4 L, MCV 85.2, MCH 27.9, MCHC 32.7, RDW Std Deviation 40.6, RDW Coeff of Jesse 13.2, Plt Count 224, MPV 10.6 Meaningful Use Info Meaningful Use Diagnoses (Choose all that apply): None applicable Discharge Plan Admission Admit Date/Time: 05/02/23 09:40 Primary Reason for Your Visit: Section Attending Provider: Peggy Dumont Primary Care Provider: Napoleon Clark Discharge Orders/Prescriptions Prescriptions: New sennosides-docusate sodium [Stool Softener-Stimulant Laxat] 8.6-50 mg Tablet 1 - 2 tab PO DAILY Qty: 30 0RF acetaminophen 500 mg Tablet 1,000 mg PO Q6 Qty: 0 0RF ibuprofen 600 mg Tablet 600 mg PO Q6H Qty: 0 0RF oxycodone 5 mg Tablet 5 - 10 mg PO Q4H PRN PRN (Reason: Pain Score 4-10) 7 Days Qty: 10 0RF Continued buspirone 10 MG tablet 10 mg PO DAILY montelukast 10 MG tablet 10 mg PO DAILY vit,[id number] 1 TABLET tablet 1 tab PO DAILY Referrals / Follow Up: Napoleon Clark DO [Primary Care Provider] - Peggy Dumont MD [Med Staff - Active Staff] - (1 week incision and 6 weeks) Disposition Disposition (needs filled in before D/C Order can be placed): Home, Self Care
[2023-05-03] MEDS: Iron Sucrose Complex 200 MG in 0.9% Normal Saline (100mL Bag) 100 ML 220 MG IV (09:45)
[2023-05-03] MEDS: Senna/Docusate Sodium 1 Tablet PO (09:51)
[2023-05-03] MEDS: busPIRone 5 MG Tablet 10 MG PO (09:51)
[2023-05-03] MEDS: Montelukast 10 MG Tablet PO (09:51)
--- NOTE | 2023-05-03 11:46 | CASEMGMT ---
Social Work Assessment Labor and Delivery Unit Patient Address: Phone number: Date of Referral: Time of Referral:? Referred By: Date of Intervention: ?? Time of Intervention:? Reason for Referral:? History obtained from: medical records and mother of baby (MOB)??? Household composition: Patient's parent/guardian status:? ? Medical History: Educational Status:? Financial Status: Supplies: Childcare/Caregiver(s):? Transportation:?? Programs/Agencies Involved: ??? Children Services/Legal Issues:??? Behavioral Health Issues: ??Mental Health History:??? Substance Use History:?? Family History:? Drug Screens: ?? Family/Social Stressors:? Support Systems: Depression/Shaken Baby/Safe Sleeping:? ASSESSMENT:? Safe Plan of Care for related to substance use:? PLAN:? ?No other services requested or indicated.
--- NOTE | 2023-05-03 11:50 | CASEMGMT ---
Social Work Assessment Labor and Delivery Unit Patient Address:[address], [place] [address] Phone number: [phone] Date of Referral: 05/02/23 Time of Referral:? [id number] Referred By: Peggy Dumont Date of Intervention: 05/03/23 ?? Time of Intervention:? 1130 Reason for Referral:? mental health Sw completed chart review and acknowledges social work consult due to maternal mental health. Sw presented to bedside and introduced self to mother of baby (MOB- Dimple) and father of baby (FOB- Evin). Sw explained reason for sw involvement. Sw completed psychosocial assessment and asked FOB to step out of room momentarily so that MOB could complete Pandora Depression Scale. FOB left room respectfully. History obtained from: medical records and mother of baby (MOB)?and FOB. Household composition: Currently residing in the home is MOB, LADONNA, their 3 year old daughter (Praveena) and now daughter Patient's parent/guardian status:? Parents state that they met while in high school and have been together since 2019. While meeting with MOB privately she denies any concerns regarding domestic violence or intimate partner violence. ? Medical History: SARA is 28 year old, female who is 2, papra 1- now 2 after delivery of . MOB received routine care during with [facility]. MOB delivered baby via scheduled on 05/02/23 at 39 weeks gestation. Baby girl, named America Eric, was born weighing 8lb 6oz and her apgars were 9 and 9 at one and five minutes of life respectfully. MOB states that she is breast feeding and it is going well. Baby will be seen by Dr. Elizabeth for pediatrics. Educational Status:? Both parents graduated high school. MOB states that she is currently in school for psychology. FOB does not have any college education. Parents deny concerns with reading, learning or comprehension. Financial Status: FOB is employed at [employer], he is able to take two weeks off of work now that baby has been born. MOB is unemployed. Infant Supplies: Parents have obtained necessary baby supplies, including: car seat, safe sleep space, clothes, diapers, wipes and a breast pump. Childcare/Caregiver(s):?MOB will be the primary caregiver to baby along with FOB when he is not working. SARA states that right now her parents are helping to provide care to their three year old while they are at the hospital. Transportation:?? SARA states that she has her drivers license and reliable means of transportation. LADONNA does not have his drivers license. Miriam asked if SARA takes LADONNA to work, and LADONNA states that he rides his bike. It is a 25-30 minutes bike ride. Miriam asked if there are other resources that parents could utilize that may be safer for LADONNA to use for transportation opposed to riding his bike- especially in the upcoming winter months. Programs/Agencies Involved: ?Parents are connected to [employer] and [employer] insurance through [employer]. SARA is also connected to counseling services through [facility]. SARA states that she meets with her counselor 1x a month. Sw encouraged SARA to make more routine appointments during her period. ?Miriam also provided SARA with information regarding [facility]. SARA stated that she considered getting connected in the past, but did not follow through with it. Miriam explained benefits and encouraged SARA to reconsider should she have any concerns regarding baby's development. Children Services/Legal Issues:???No history of involvement, no issues or concerns warranting referral at this time. Behavioral Health Issues: ??Mental Health History:?LADONNA denies mental health history. SARA states that she has been diagnosed with anxiety and depression, and is prescribed buspar to help bar manager her symptoms. SARA states that following the of her first daughter she did experience some depression. SARA states that at that time her symptoms looked like more depressed than normal. SARA states that LADONNA is a good support for her and is able to recognize when she is struggling. ?In chart review- it is noted that SARA did have a history of an overdose in 2011 with a subsequent hospitalization at [facility]. SARA has since denied any suicidal ideation, intent or planning since that time. SARA did complete an Pandora Depression scale and her score was a 6, which falls below the threshold for current depressive symptoms. ? Substance Use History:?SARA denies substance use prior to and during . ? Family History:???MOB denies family history of addiction or mental health history. ?? Drug Screens: No urine screens observed in chart review. ?? Family/Social Stressors:? Parents deny stressors at this time. Support Systems: MOB states that her family is her biggest support. Depression/Shaken Baby/Safe Sleeping:? Sw educated parents on signs and symptoms of baby blues and depression. Parents expressed understanding. Sw educated parents on shaken baby prevention and ABCs of safe sleep. Parents expressed understanding. ASSESSMENT:? MOB and baby admitted following labor and delivery. MOB with mental health history, positive for overdose in 2011, no suicidal ideation or intent since that time. MOB is connected to mental health supports- but would benefit from increased and regular involvement. Parents state they have obtained all necessary items for baby. Parents both with flat affect, but both observed to provide appropriate hands on care of baby. PLAN:? MOB and baby to be discharged when medically ready. ?No other services requested or indicated. Sesar Coleman, DOCTORATE OF CHIROPRACTIC, ALMOND BLANCHER
== END 2023-05-03 16:22 | disposition home or self-care (01) | DRG 788 ==
PROVIDERS: Obstetrics & Gynecology; Admitting Provider Obstetrics & Gynecology; PCP Preventive Medicine Occupational Medicine; Visit Provider Obstetrics & Gynecology
PROC: (CPT 59514; principal; 2023-05-02 11:45)
DX: O34.211 Maternal care for low transverse scar from previous cesarean delivery (principal); O99.214 Obesity complicating childbirth; Z37.0 Single live birth; Z3A.39 39 weeks gestation of pregnancy
CPT/HCPCS: 59025; 59050; 85025; 85027; 86780; 86850; 86900; 86901; 99221; J1756; J7120; A4216; G0378; J2405